=== PATIENT | male | born 1960 | race Caucasian/White ===

== ENCOUNTER 2016-05-25 15:17 | Emergency (ER) | payer MEDICAID | END 2016-05-25 15:56 | disposition home or self-care (01) | DX: Z02.89 Encounter for other administrative examinations (principal); H81.09 Meniere's disease, unspecified ear; E03.9 Hypothyroidism, unspecified ==

== ENCOUNTER 2016-12-13 10:38 | Outpatient (CLI) | payer MEDICAID ==
[2016-12-13 13:04] LABS: BASOPHILS # (AUTO) 0.1 10^3/uL (0.0-0.1); BASOPHILS % (AUTO) 1.8 %; EOSINOPHILS # (AUTO) 0.3 10^3/uL (0.0-0.7); EOSINOPHILS % (AUTO) 3.9 %; HCT - HEMATOCRIT 40.6 % (42.0-52.0); HGB - HEMOGLOBIN 13.7 g/dL (14.0-18.0); LYMPHOCYTES # (AUTO) 1.5 10^3/uL (1.5-3.5); LYMPHOCYTES % (AUTO) 23.1 %; MEAN CORPUSCULAR HGB CONC 33.8 g/dL (32.0-36.0); MEAN CORPUSCULAR VOLUME 88.5 fL (80.0-94.0); MEAN PLATELET VOLUME 8.1 fL (7.4-11.4); MONOCYTES # (AUTO) 0.6 10^3/uL (0.0-1.0); MONOCYTES % (AUTO) 9.8 %; NEUTROPHILS % (AUTO) 61.4 %; RED BLOOD COUNT 4.58 10^6/uL (4.70-6.10); RED CELL DISTRIBUTION WIDTH 13.6 % (12.0-15.0); UNCORRECTED WHITE BLOOD COUNT 6.5 x10^3/uL; WHITE BLOOD COUNT 6.5 x10^3/uL (4.8-10.8)
[2016-12-13 14:16] LABS: THYROID STIMULATING HORMONE 1.92 uIU/mL (0.34-5.60)
== END 2016-12-13 10:39 | disposition home or self-care (01) ==
LOC: LAB.N 10:38
PROVIDERS: ATTEND Family Medicine
DX: E03.9 Hypothyroidism, unspecified (principal); D64.9 Anemia, unspecified
CPT/HCPCS: 36415; 84439; 84443; 85025

== ENCOUNTER 2016-12-28 14:15 | Outpatient (CLI) | payer MEDICAID ==
[2016-12-28 19:19] LABS: BASOPHILS # (AUTO) 0.1 10^3/uL (0.0-0.1); BASOPHILS % (AUTO) 1.3 %; EOSINOPHILS # (AUTO) 0.2 10^3/uL (0.0-0.7); EOSINOPHILS % (AUTO) 2.5 %; HCT - HEMATOCRIT 40.7 % (42.0-52.0); HGB - HEMOGLOBIN 13.7 g/dL (14.0-18.0); LYMPHOCYTES # (AUTO) 1.6 10^3/uL (1.5-3.5); LYMPHOCYTES % (AUTO) 20.8 %; MEAN CORPUSCULAR HEMOGLOBIN 29.9 pg (27.0-31.0); MEAN CORPUSCULAR HGB CONC 33.8 g/dL (32.0-36.0); MEAN CORPUSCULAR VOLUME 88.6 fL (80.0-94.0); MEAN PLATELET VOLUME 8.2 fL (7.4-11.4); MONOCYTES # (AUTO) 0.7 10^3/uL (0.0-1.0); MONOCYTES % (AUTO) 9.1 %; NEUTROPHILS # (AUTO) 5.1 10^3/uL (1.5-6.6); NEUTROPHILS % (AUTO) 66.3 %; NUCLEATED RED BLOOD CELLS AUTO 0.1 /100WBC; RED BLOOD COUNT 4.59 10^6/uL (4.70-6.10); RED CELL DISTRIBUTION WIDTH 13.6 % (12.0-15.0); UNCORRECTED WHITE BLOOD COUNT 7.7 x10^3/uL; WHITE BLOOD COUNT 7.7 x10^3/uL (4.8-10.8)
[2016-12-28 19:48] LABS: FERRITIN 10.7 ng/mL (23.9-336.2)
[2016-12-28 19:49] LABS: IRON 82 ug/dL (45-182); TOTAL IRON BINDING CAPACITY 451 ug/dL (250-450); TRANSFERRIN 322 mg/dL (180-329)
[2016-12-28 19:52] LABS: FOLATE 16.62 ng/mL (5.90 - >24.8)
== END 2016-12-28 14:16 | disposition home or self-care (01) ==
LOC: LAB.N 14:15
PROVIDERS: ATTEND Family Medicine
DX: D64.9 Anemia, unspecified (principal)
CPT/HCPCS: 36415; 82607; 82728; 82746; 83540; 84466; 85025; 85044

== ENCOUNTER 2017-02-02 10:53 | Outpatient (CLI) | payer MEDICAID | END 2017-02-02 10:54 | disposition home or self-care (01) | LOC: SC 10:53 | PROVIDERS: ATTEND Nurse Practitioner Family | DX: G47.9 Sleep disorder, unspecified (principal); R53.83 Other fatigue; R06.83 Snoring | CPT/HCPCS: 99212; 99214 ==

== ENCOUNTER 2017-02-03 11:24 | Outpatient (CLI) | payer MEDICAID ==
[2017-02-03 19:34] LABS: IMMATURE RETIC FRACTION 0.28; RED BLOOD COUNT 4.26 10^6/uL (4.70-6.10)
[2017-02-03 20:00] LABS: IRON 84 ug/dL (45-182); TOTAL IRON BINDING CAPACITY 420 ug/dL (250-450); TRANSFERRIN 300 mg/dL (180-329)
== END 2017-02-03 11:25 | disposition home or self-care (01) ==
LOC: LAB.N 11:24
PROVIDERS: ATTEND Surgery
DX: D64.9 Anemia, unspecified (principal)
CPT/HCPCS: 36415; 82270; 83540; 84466; 85044

== ENCOUNTER 2017-02-06 10:54 | Emergency (ER) | payer MEDICAID ==
--- NOTE | 2017-02-06 12:17 | ED Physician Documentation ---
History of Present Illness - Stated complaint Stated Complaint: CHEST INJURY - Chief complaint Chief Complaint: General - History obtained from History obtained from: Patient - History of Present Illness Timing: Other (2 days ago he was working, was lifting rocks and developed pain in the right chest wall which radiated across the right chest which is sharp and worse with motions of the right arm and deep breathing. There is no exertional component to it. No pedal edema or calf pain. No history of heart or lung disease.) Review of Systems Constitutional: denies: Fever, Chills Nose: denies: Rhinorrhea / runny nose, Congestion Cardiac: denies: Palpitations, Pedal edema, Calf pain Respiratory: denies: Dyspnea, Cough, Hemoptysis, Wheezing PD PAST MEDICAL HISTORY - Past Medical History Neuro: None Endocrine/Autoimmune: HyPOthyroidism Other Past Medical History: hypotension - Past Surgical History Past Surgical History: Yes General: Colonoscopy - Present Medications Home Medications: Ambulatory Orders Medication Instructions Recorded Confirmed Levothyroxine [Synthroid] 50 mcg PO DAILY 05/09/16 02/06/17 HYDROcod/ACETAM 5/325 [Freeman 5/325] 1 - 2 ea PO Q6H PRN #15 tablet 02/06/17 Hydrochlorothiazide 12.5 mg PO DAILY 02/06/17 02/06/17 [Hydrochlorothiazide] - Allergies Allergies/Adverse Reactions: Allergies Allergy/AdvReac Type Severity Reaction Status Date / Time No Known Drug Allergies Allergy Verified 02/06/17 11:00 - Social History Does the pt smoke?: No Smoking Status: Never smoker Does the pt drink ETOH?: Yes Does the pt have substance abuse?: No - Immunizations Immunizations are current?: Yes PD ED PE NORMAL - Vitals Vital signs reviewed: Yes - General General: Alert and oriented X 3, No acute distress - HEENT HEENT: PERRL, EOMI - Neck Neck: Supple, no meningeal sign, No bony TTP - Cardiac Cardiac: RRR, No murmur, Other (Tenderness to the superior part of the pectoralis muscle on the right, he has pain with motion of the right shoulder, especially external rotation in a forceful manner.) - Respiratory Respiratory: No respiratory distress, Clear bilaterally - Abdomen Abdomen: Soft, Non tender - Extremities Extremities: No edema, No calf tenderness / cord - Neuro Neuro: Alert and oriented X 3, Normal speech - Psych Psych: Normal mood, Normal affect Results - Vitals Vitals: Vital Signs - 24 hr 02/06/17 10:56 Temperature 36.1 C L Heart Rate 68 Respiratory 16 Rate Blood Pressure 135/97 H O2 Saturation 98 Oxygen O2 Source Room air - EKG (time done) 1228 Rate: Rate (enter#) (61) Rhythm: NSR [place]: Normal Intervals: Normal [place] QRS: Normal Ischemia: Normal ST segments Computer interpretation: Agree with computer PD MEDICAL DECISION MAKING - ED course ED course: This is a 56-year-old gentleman with clearly musculoskeletal chest wall pain starting after heavy lifting, EKG done. He specifically requests pain medication over muscle relaxers. The [facility] prescription monitoring program was queried with regard to this patient. No concerning findings were found. Departure - Departure Disposition: 01 Home, Self Care Clinical Impression: Chest wall muscle strain Condition: Good Record reviewed to determine appropriate education?: Yes Instructions: ED Contusion Chest Wall Prescriptions: HYDROcod/ACETAM 5/325 [Freeman 5/325] 1 - 2 ea PO Q6H PRN #15 tablet PRN Reason: Pain Comments: Call your doctor to arrange a follow-up appointment, make the next available appointment. In the interim, return anytime if worse or if new symptoms develop. Your blood pressure was elevated today on check into the emergency department. This does not mean that you have hypertension, it is a common phenomenon to come to the emergency department and have elevated blood pressure. I recommend that she see your primary care physician within the week to have it rechecked when you are feeling better. Do not drink or drive while taking narcotic pain medication. Note that many narcotic pain relievers also contain Tylenol/acetaminophen. Please ensure that your total dose of acetaminophen from all sources does not exceed 3 g (3000 mg) per day. You may get constipated while on this medication. Take a stool softener such as Colace twice a day while you are on it. Also add an [id number] laxative such as senna or MiraLAX on any day that you do not have a bowel movement. If you received a narcotic pain medication or sedative while in the emergency department, do not drive for the next 24 hours.
[2017-02-06 12:32] VITALS: BP 145/100
== END 2017-02-06 12:30 | disposition home or self-care (01) ==
LOC: ED 10:54
DX: S29.011A Strain of muscle and tendon of front wall of thorax, initial encounter (principal); X50.0XXA Overexertion from strenuous movement or load, initial encounter; Y93.89 Activity, other specified; Y99.0 Civilian activity done for income or pay; R03.0 Elevated blood-pressure reading, without diagnosis of hypertension; E03.9 Hypothyroidism, unspecified
CPT/HCPCS: 93005; 99283

== ENCOUNTER 2017-02-12 15:15 | Emergency (ER) | payer MEDICAID ==
[2017-02-12 15:28] VITALS: BP 137/98
[2017-02-12] MEDS ORDERED: predniSONE 20 MG TABLET PO STA (15:37)
[2017-02-12] MEDS ORDERED: diphenhydrAMINE 25 MG CAPSULE PO STA (15:37)
--- NOTE | 2017-02-12 15:38 | ED Physician Documentation ---
History of Present Illness - Stated complaint Stated Complaint: BEE STING - Chief complaint Chief Complaint: Allergic Rx - History obtained from History obtained from: Patient - History of Present Illness Timing: Other (Stung by a bee approximately 10:30 AM to the dorsum of the left hand with swelling and redness there, no diffuse rash, throat swelling, shortness of breath. No history of anaphylaxis to bee stings.) Review of Systems Constitutional: denies: Fever, Chills Ears: denies: Drainage/discharge Nose: denies: Rhinorrhea / runny nose Throat: denies: Sore throat Cardiac: denies: Chest pain / pressure, Palpitations Respiratory: denies: Dyspnea, Cough PD PAST MEDICAL HISTORY - Past Medical History Neuro: None Endocrine/Autoimmune: HyPOthyroidism - Past Surgical History Past Surgical History: Yes General: Colonoscopy - Present Medications Home Medications: Ambulatory Orders Medication Instructions Recorded Confirmed Levothyroxine [Synthroid] 50 mcg PO DAILY 05/09/16 02/12/17 Hydrochlorothiazide 12.5 mg PO DAILY 02/06/17 02/12/17 [Hydrochlorothiazide] Liothyronine [Cytomel] 5 mg PO DAILY 02/12/17 02/12/17 predniSONE [Deltasone] 60 mg PO DAILY 5 Days tablet 02/12/17 - Allergies Allergies/Adverse Reactions: Allergies Allergy/AdvReac Type Severity Reaction Status Date / Time No Known Drug Allergies Allergy Verified 02/06/17 11:00 - Social History Does the pt smoke?: No Smoking Status: Never smoker Does the pt drink ETOH?: Yes Does the pt have substance abuse?: No - Immunizations Immunizations are current?: Yes PD ED PE NORMAL - Vitals Vital signs reviewed: Yes - General General: Alert and oriented X 3, No acute distress - HEENT HEENT: Pharynx benign - Cardiac Cardiac: RRR, No murmur - Respiratory Respiratory: No respiratory distress, Clear bilaterally - Derm Derm: Other (No diffuse rash, to the dorsum of the left hand he has angioedema and redness consistent with bee sting with local reaction,) - Neuro Neuro: Alert and oriented X 3, Normal speech - Psych Psych: Normal mood, Normal affect Results - Vitals Vitals: Vital Signs - 24 hr 02/12/17 15:26 Temperature 36.0 C L Heart Rate 80 Respiratory 16 Rate Blood Pressure 137/98 H O2 Saturation 100 Oxygen O2 Source Room air PD MEDICAL DECISION MAKING - ED course ED course: The patient was counseled as to the diagnosis and need for follow-up. I counseled the patient with regard to signs and symptoms that would necessitate an urgent reevaluation in the emergency department. They understand they are welcome to return at any time if worse or if not improving as expected. This document was made in part using voice recognition software. While efforts are made to proofread this documents, sound alike and grammatical errors may occur. Departure - Departure Disposition: 01 Home, Self Care Clinical Impression: Local reaction to bee sting Qualifiers: Encounter type: initial encounter Injury intent: accidental or unintentional Qualified Code(s): T63.441A - Toxic effect of venom of bees, accidental ( unintentional), initial encounter Condition: Good Record reviewed to determine appropriate education?: Yes Instructions: ED Allergic Reaction Local Other Prescriptions: predniSONE [Deltasone] 60 mg PO DAILY 5 Days tablet Comments: Take Benadryl [id number] as needed for itching and swelling, keep it elevated and you can ice it for 5 minutes every hour. Your blood pressure was elevated today on check into the emergency department. This does not mean that you have hypertension, it is a common phenomenon to come to the emergency department and have elevated blood pressure. I recommend that she see your primary care physician within the week to have it rechecked when you are feeling better. Call your doctor to arrange a follow-up appointment, make the next available appointment. In the interim, return anytime if worse or if new symptoms develop.
[2017-02-12] MEDS ORDERED: diphenhydrAMINE 25 MG CAPSULE PO ONE (15:43)
[2017-02-12] MEDS ORDERED: predniSONE 20 MG TABLET ONE (15:43)
== END 2017-02-12 15:49 | disposition home or self-care (01) ==
LOC: ED 15:15
DX: T63.441A Toxic effect of venom of bees, accidental (unintentional), initial encounter (principal); E03.9 Hypothyroidism, unspecified
CPT/HCPCS: 99283; A9270; J7512

== ENCOUNTER 2017-02-21 08:00 | Outpatient (CLI) | payer MEDICAID | END 2017-02-21 23:59 | disposition home or self-care (01) | LOC: LAB.R 08:00 | PROVIDERS: ATTEND Surgery | DX: D50.9 Iron deficiency anemia, unspecified (principal) | CPT/HCPCS: 82270 ==

== ENCOUNTER 2017-03-01 13:25 | Day surgery (SDC) | payer MEDICAID ==
[2017-03-01] MEDS ORDERED: LACTATED RINGERS 1,000 ML IV ONE (13:49)
[2017-03-01] MEDS ORDERED: MIDAZOLAM 2 MG/2 ML VIAL IVP ONE (14:05)
[2017-03-01] MEDS ORDERED: fentaNYL 100 MCG/2 ML VIAL IVP ONE (14:05)
[2017-03-01 16:06] VITALS: BP 99/68
== END 2017-03-01 13:26 | disposition home or self-care (01) ==
LOC: SDS 13:25
PROVIDERS: ATTEND Surgery
PROC: 0DBM8ZX Excision of Descending Colon, Via Natural or Artificial Opening Endoscopic, Diagnostic (ICD-10-PCS; principal; 2017-03-01 14:15)
DX: K63.5 Polyp of colon (principal); D64.9 Anemia, unspecified; K21.9 Gastro-esophageal reflux disease without esophagitis; F41.9 Anxiety disorder, unspecified
CPT/HCPCS: 45380; J7120

== ENCOUNTER 2017-03-03 10:19 | Outpatient (CLI) | payer MEDICAID | END 2017-03-03 10:20 | disposition home or self-care (01) | LOC: SC 10:19 | PROVIDERS: ATTEND Nurse Practitioner Family | DX: G47.33 Obstructive sleep apnea (adult) (pediatric) (principal) | CPT/HCPCS: 99212; 99214 ==

== ENCOUNTER 2017-04-04 18:58 | Outpatient (CLI) | payer MEDICAID ==
--- NOTE | 2017-04-04 21:15 | Ultrasound Report ---
EXAM: RIGHT LOWER EXTREMITY VENOUS ULTRASOUND EXAM DATE: 04/04/2017 07:56 PM. CLINICAL HISTORY: Edema with recent trauma history. COMPARISON: None. TECHNIQUE: Real-time sonographic vascular imaging was performed by the harness brusher through the lower extremity utilizing both color-flow and Doppler spectral analysis. Multiple bottling equipment sales representative static kaitlin ges were saved for review. FINDINGS: Common Femoral Vein (CFV): Normal. CFV-GSV Junction: Normal. Profunda Femoral Vein (PFV): Normal. Femoral Vein (FV) Prox: Normal. Femoral Vein (FV) Mid: Normal. Femoral Vein (FV) Dist: Normal. Popliteal Vein: Normal. Posterior Tibial Veins: Normal. Peroneal Veins: Normal. Contralateral Side CFV: Normal. Other: In the region of the anterolateral mid to distal right leg soft tissue swelling, there is a cu rvilinear fluid collection measuring 3 x 0.5 x 0.5 cm. No radiopaque foreign bodies are noted. IMPRESSION: 1. Small focal area of fluid in the region of swelling measuring 3 x 0.5 x 0.5 cm. No radiopaque fore ign bodies. Differential includes a hematoma or seroma. 2. No evidence for deep venous thrombosis. [facility] Referring Provider Line: [phone] SITE ID: [id number]
== END 2017-04-04 18:59 | disposition home or self-care (01) ==
LOC: DI 18:58
PROVIDERS: ATTEND Nurse Practitioner Gerontology
DX: R60.9 Edema, unspecified (principal)

== ENCOUNTER 2017-06-16 11:01 | Outpatient (CLI) | payer MEDICAID | END 2017-06-16 11:02 | disposition home or self-care (01) | LOC: SC 11:01 | PROVIDERS: ATTEND Nurse Practitioner Family | DX: G47.33 Obstructive sleep apnea (adult) (pediatric) (principal) | CPT/HCPCS: 99212; 99214 ==

== ENCOUNTER 2017-07-14 10:43 | Outpatient (CLI) | payer MEDICAID ==
[2017-07-14 13:48] LABS: % IRON SATURATION 16 % (20-50); BASOPHILS # (AUTO) 0.1 10^3/uL (0.0-0.1); BASOPHILS % (AUTO) 1.1 %; EOSINOPHILS # (AUTO) 0.2 10^3/uL (0.0-0.7); EOSINOPHILS % (AUTO) 2.7 %; HGB - HEMOGLOBIN 14.5 g/dL (14.0-18.0); IRON 67 ug/dL (45-182); LYMPHOCYTES # (AUTO) 1.4 10^3/uL (1.5-3.5); LYMPHOCYTES % (AUTO) 19.9 %; MEAN CORPUSCULAR HEMOGLOBIN 30.2 pg (27.0-31.0); MEAN CORPUSCULAR HGB CONC 33.9 g/dL (32.0-36.0); MEAN CORPUSCULAR VOLUME 89.1 fL (80.0-94.0); MEAN PLATELET VOLUME 8.5 fL (7.4-11.4); MONOCYTES # (AUTO) 0.8 10^3/uL (0.0-1.0); MONOCYTES % (AUTO) 10.8 %; NEUTROPHILS # (AUTO) 4.6 10^3/uL (1.5-6.6); NEUTROPHILS % (AUTO) 65.5 %; PLT - PLATELET COUNT 300 10^3/uL (130-450); RED BLOOD COUNT 4.78 10^6/uL (4.70-6.10); RED CELL DISTRIBUTION WIDTH 13.8 % (12.0-15.0); TOTAL IRON BINDING CAPACITY 414 ug/dL (250-450); TRANSFERRIN 296 mg/dL (180-329)
== END 2017-07-14 10:44 | disposition home or self-care (01) ==
LOC: LAB.N 10:43
PROVIDERS: ATTEND Family Medicine
DX: D50.9 Iron deficiency anemia, unspecified (principal)
CPT/HCPCS: 36415; 82728; 83540; 84466; 85025

== ENCOUNTER 2017-08-11 08:00 | Outpatient (CLI) | payer MEDICAID ==
[2017-08-11 13:10] LABS: CALCIUM 9.1 mg/dL (8.5-10.3); CREATININE 0.7 mg/dL (0.6-1.2); THYROID STIMULATING HORMONE 3.68 uIU/mL (0.34-5.60)
[2017-08-11 13:12] LABS: FREE T4 (FREE THYROXINE) 0.91 ng/dL (0.58-1.64)
== END 2017-08-11 08:01 | disposition home or self-care (01) ==
LOC: LAB.N 08:00
PROVIDERS: ATTEND Family Medicine
DX: E03.9 Hypothyroidism, unspecified (principal); R60.9 Edema, unspecified
CPT/HCPCS: 36415; 80048; 84439; 84443; 84481

== ENCOUNTER → 2017-11-18 | Outpatient (CLI) | payer MEDICAID | LOC: RT.N 05:10 | PROVIDERS: ATTEND Family Medicine | DX: R53.83 Other fatigue (principal); R53.81 Other malaise | CPT/HCPCS: 93005 ==

== ENCOUNTER 2017-11-30 08:49 | Outpatient (CLI) | payer MEDICAID ==
[2017-11-30 09:22] LABS: BASOPHILS % (AUTO) 0.3 %; EOSINOPHILS # (AUTO) 0.4 10^3/uL (0.0-0.7); EOSINOPHILS % (AUTO) 6.4 %; HGB - HEMOGLOBIN 13.4 g/dL (14.0-18.0); LYMPHOCYTES # (AUTO) 1.5 10^3/uL (1.5-3.5); LYMPHOCYTES % (AUTO) 23.6 %; MEAN CORPUSCULAR HEMOGLOBIN 30.6 pg (27.0-31.0); MEAN CORPUSCULAR HGB CONC 34.3 g/dL (32.0-36.0); MEAN CORPUSCULAR VOLUME 89.2 fL (80.0-94.0); MEAN PLATELET VOLUME 7.2 fL (7.4-11.4); MONOCYTES # (AUTO) 0.7 10^3/uL (0.0-1.0); MONOCYTES % (AUTO) 11.6 %; NEUTROPHILS # (AUTO) 3.7 10^3/uL (1.5-6.6); NEUTROPHILS % (AUTO) 58.1 %; PLT - PLATELET COUNT 327 10^3/uL (130-450); RED BLOOD COUNT 4.38 10^6/uL (4.70-6.10); WHITE BLOOD COUNT 6.3 x10^3/uL (4.8-10.8)
[2017-11-30 10:03] LABS: THYROID STIMULATING HORMONE 3.22 uIU/mL (0.34-5.60)
[2017-11-30 10:05] LABS: ALBUMIN 3.7 g/dL (3.2-5.5); ALBUMIN/GLOBULIN RATIO 1.2 (1.0-2.2); BILIRUBIN,TOTAL 0.9 mg/dL (0.2-1.0); CREATININE 0.9 mg/dL (0.6-1.2); FREE T4 (FREE THYROXINE) 1.01 ng/dL (0.58-1.64); TOTAL PROTEIN 6.8 g/dL (6.7-8.2)
[2017-11-30 10:08] LABS: FERRITIN 21.5 ng/mL (23.9-336.2)
== END 2017-11-30 08:50 | disposition home or self-care (01) ==
LOC: LAB 08:49
PROVIDERS: ATTEND Family Medicine
DX: R53.83 Other fatigue (principal); D50.9 Iron deficiency anemia, unspecified; E03.9 Hypothyroidism, unspecified
CPT/HCPCS: 36415; 80053; 82728; 83540; 84439; 84443; 84466; 84481; 85025

== ENCOUNTER → 2018-03-01 | Outpatient (CLI) | payer MEDICAID | LOC: RT.N 15:35 | PROVIDERS: ATTEND Family Medicine | DX: R42 Dizziness and giddiness (principal) | CPT/HCPCS: 93005 ==

== ENCOUNTER 2018-04-25 10:35 | Outpatient (CLI) | payer MEDICAID ==
[2018-04-25 10:50] LABS: BASOPHILS # (AUTO) 0.1 10^3/uL (0.0-0.1); BASOPHILS % (AUTO) 1.5 %; EOSINOPHILS # (AUTO) 0.2 10^3/uL (0.0-0.7); EOSINOPHILS % (AUTO) 4.8 %; HGB - HEMOGLOBIN 13.8 g/dL (14.0-18.0); LYMPHOCYTES # (AUTO) 1.4 10^3/uL (1.5-3.5); LYMPHOCYTES % (AUTO) 28.6 %; MEAN CORPUSCULAR HEMOGLOBIN 31.1 pg (27.0-31.0); MEAN CORPUSCULAR HGB CONC 34.6 g/dL (32.0-36.0); MEAN CORPUSCULAR VOLUME 89.9 fL (80.0-94.0); MEAN PLATELET VOLUME 7.2 fL (7.4-11.4); MONOCYTES # (AUTO) 0.6 10^3/uL (0.0-1.0); NEUTROPHILS # (AUTO) 2.5 10^3/uL (1.5-6.6); NEUTROPHILS % (AUTO) 53.1 %; PLT - PLATELET COUNT 285 10^3/uL (130-450); RED BLOOD COUNT 4.42 10^6/uL (4.70-6.10); RED CELL DISTRIBUTION WIDTH 13.5 % (12.0-15.0); WHITE BLOOD COUNT 4.8 x10^3/uL (4.8-10.8)
[2018-04-25 11:21] LABS: THYROID STIMULATING HORMONE 2.15 uIU/mL (0.34-5.60)
[2018-04-25 11:23] LABS: FREE T4 (FREE THYROXINE) 1.05 ng/dL (0.58-1.64)
[2018-04-25 11:27] LABS: FERRITIN 19.3 ng/mL (23.9-336.2)
== END 2018-04-25 10:36 | disposition home or self-care (01) ==
LOC: LAB 10:35
PROVIDERS: ATTEND Family Medicine
DX: D64.9 Anemia, unspecified (principal); E03.9 Hypothyroidism, unspecified
CPT/HCPCS: 36415; 82728; 84439; 84443; 84481; 85025

== ENCOUNTER 2018-05-10 11:35 | Outpatient (CLI) | payer MEDICAID ==
[2018-05-10 19:11] LABS: PSA FREE 0.21 ng/mL (0.16-2.81)
[2018-05-10 19:12] LABS: PSA TOTAL 0.6 ng/mL (0.000-2.000)
== END 2018-05-10 23:59 | disposition home or self-care (01) ==
LOC: LAB.N 11:35
PROVIDERS: ATTEND Family Medicine
DX: R35.1 Nocturia (principal)
CPT/HCPCS: 36415; 84153; 84154

== ENCOUNTER 2018-11-19 16:53 | Emergency (ER) | payer MEDICAID ==
[2018-11-19] MEDS ORDERED: BUFFERED LIDOCAINE 10 ML SYRINGE SUBQ STA (17:05)
[2018-11-19 17:06] VITALS: BP 147/85
--- NOTE | 2018-11-19 17:06 | ED Physician Documentation ---
PD HPI LOWER EXT INJURY - Stated complaint Stated Complaint: LT FOOT LAC - History obtained from History obtained from: Patient - History of Present Illness PD HPI LOW EXT INJURY LOCATION: Left (57-year-old gentleman who is up-to-date on tetanus cut his left great toe with a chainsaw accidentally at home just prior to arrival.) Review of Systems Constitutional: reports: Reviewed and negative Cardiac: reports: Reviewed and negative Respiratory: reports: Reviewed and negative PD PAST MEDICAL HISTORY - Past Medical History Cardiovascular: Other Respiratory: None Endocrine/Autoimmune: None GI: None : None HEENT: None Psych: None Musculoskeletal: None Derm: Psoriasis - Past Surgical History Past Surgical History: Yes General: Colonoscopy HEENT: Tonsil/Adenoidectomy - Present Medications Home Medications: Ambulatory Orders Medication Instructions Recorded Confirmed Levothyroxine [Synthroid] 50 mcg PO DAILY 05/09/16 03/01/17 hydroCHLOROthiazide 12.5 mg PO DAILY 02/06/17 03/01/17 [Hydrochlorothiazide] Liothyronine [Cytomel] 5 mg PO DAILY 02/12/17 03/01/17 predniSONE [Deltasone] 60 mg PO DAILY 5 Days tablet 02/12/17 03/01/17 Bacitracin Zinc Oint 1 applic TOP BID #1 tube 11/19/18 Hydrocodone/Acetaminophen 1 - 2 each PO Q6H PRN #7 tablet 11/19/18 [Hydrocodon-Acetaminophen 5-325] - Allergies Allergies/Adverse Reactions: Allergies Allergy/AdvReac Type Severity Reaction Status Date / Time No Known Drug Allergies Allergy Verified 02/06/17 11:00 - Social History Does the pt smoke?: No Smoking Status: Never smoker Does the pt drink ETOH?: Yes Does the pt have substance abuse?: No - Immunizations Immunizations are current?: Yes PD ED PE NORMAL - Vitals Vital signs reviewed: Yes - General General: Alert and oriented X 3, No acute distress - Extremities Extremities: Other (On the tip of the left great toe there is basically a tissue defect measuring about 1 cm x 5 mm that is somewhat dirty. It just barely affects the tip of the nail. It is basically central in the tip of the great toe.) - Neuro Neuro: Alert and oriented X 3, Normal speech Results - Vitals Vitals: Vital Signs - 24 hr 11/19/18 17:04 Temperature 36.5 C Heart Rate 88 Respiratory 18 Rate Blood Pressure 147/85 H O2 Saturation 98 Oxygen O2 Source Room air Procedures - Regional nerve block Nerve block site: Digital - note digit(s) (left big toe) Nerve block anesthesia: Lidocaine 1% (buffered) Nerve block aftercare: Excellent anesthesia PD MEDICAL DECISION MAKING - ED course ED course: After digital block I personally scrubbed it and irrigated it thoroughly. It became clear that the defect was too big to close with suture and discussed with the patient that it will have to heal by secondary intention. Here it was dressed with Xeroform and tube gauze and he was counseled on wound care. Departure - Departure Disposition: Home, Self Care Clinical Impression: Avulsion of skin of foot Qualifiers: Encounter type: initial encounter Laterality: left Qualified Code(s): S91.302A - Unspecified open wound, left foot, initial encounter Condition: Good Record reviewed to determine appropriate education?: Yes Health Concerns: Toe wound Plan of Treatment: As discussed the wound will have to heal by itself as it is too wide to suture. Once a day wash briefly with soap and water and then apply some of the bacitracin ointment as a prescription. Then put a nonstick dressing on it and keep it covered. After a few weeks of this it should heal in well. Follow-up with your doctor in a week for a wound check. Care Goals: healing Assessment: as above Instructions: ED Avulsion Dermal Prescriptions: Bacitracin Zinc Oint 1 applic TOP BID #1 tube Hydrocodone/Acetaminophen [Hydrocodon-Acetaminophen 5-325] 1 - 2 each PO Q6H PRN #7 tablet PRN Reason: pain Comments: As discussed the wound will have to heal by itself as it is too wide to suture. Once a day wash briefly with soap and water and then apply some of the bacitracin ointment as a prescription. Then put a nonstick dressing on it and keep it covered. After a few weeks of this it should heal in well. Follow-up with your doctor in a week for a wound check.
[2018-11-19] MEDS ORDERED: HYDROcod/ACET 5/325 Prepack 4 PO STA (17:51)
--- NOTE | 2018-11-19 18:17 | XRAY Report ---
Reason: toe inj Procedure Date: 11/19/2018 Accession Number: [id number] / [id number] Procedure: XR - Toe(s) LT CPT Code: FULL RESULT: EXAM: LEFT TOE RADIOGRAPHY EXAM DATE: 11/19/2018 05:51 PM. CLINICAL HISTORY: Toe inj. COMPARISON: None. TECHNIQUE: 3 views. FINDINGS: Bones: No acute fractures or suspicious bone lesions. Joints: No subluxations. Soft Tissues: No radiopaque foreign bodies. IMPRESSION: No acute radiographic abnormalities. [facility]
== END 2018-11-19 17:59 | disposition home or self-care (01) ==
LOC: ED 16:53
DX: S91.112A Laceration without foreign body of left great toe without damage to nail, initial encounter (principal); W29.3XXA Contact with powered garden and outdoor hand tools and machinery, initial encounter; Y92.009 Unspecified place in unspecified non-institutional (private) residence as the place of occurrence of the external cause
CPT/HCPCS: 64450; 73660; 99283; 99284

== ENCOUNTER 2019-01-23 19:00 | Emergency (ER) | payer MEDICAID ==
[2019-01-23 19:21] VITALS: BP 163/103
== END 2019-01-23 19:24 | disposition left against medical advice (07) ==
LOC: ED 19:00
DX: Z53.21 Procedure and treatment not carried out due to patient leaving prior to being seen by health care provider (principal)

== ENCOUNTER 2019-06-05 07:59 | Outpatient (CLI) | payer MEDICAID | END 2019-06-05 08:00 | disposition home or self-care (01) | LOC: LAB 07:59 | PROVIDERS: ATTEND Physician Assistant Medical | DX: Z53.9 Procedure and treatment not carried out, unspecified reason (principal) ==

== ENCOUNTER 2019-06-09 07:39 | Outpatient (CLI) | payer MEDICAID ==
[2019-06-09 07:54] LABS: BASOPHILS # (AUTO) 0.1 10^3/uL (0.0-0.1); BASOPHILS % (AUTO) 0.9 %; EOSINOPHILS # (AUTO) 0.4 10^3/uL (0.0-0.7); EOSINOPHILS % (AUTO) 4.2 %; HGB - HEMOGLOBIN 14.1 g/dL (14.0-18.0); LYMPHOCYTES # (AUTO) 1.4 10^3/uL (1.5-3.5); LYMPHOCYTES % (AUTO) 16.8 %; MEAN CORPUSCULAR HEMOGLOBIN 30.9 pg (27.0-31.0); MEAN CORPUSCULAR HGB CONC 33.1 g/dL (32.0-36.0); MEAN CORPUSCULAR VOLUME 93.4 fL (80.0-94.0); MEAN PLATELET VOLUME 9.3 fL (7.4-11.4); MONOCYTES # (AUTO) 0.9 10^3/uL (0.0-1.0); MONOCYTES % (AUTO) 10.8 %; NEUTROPHILS # (AUTO) 5.7 10^3/uL (1.5-6.6); PLT - PLATELET COUNT 293 10^3/uL (130-450); RED BLOOD COUNT 4.56 10^6/uL (4.70-6.10); RED CELL DISTRIBUTION WIDTH 12.5 % (12.0-15.0); WHITE BLOOD COUNT 8.6 x10^3/uL (4.8-10.8)
[2019-06-09 08:09] LABS: ALBUMIN 4.3 g/dL (3.2-5.5); ALBUMIN/GLOBULIN RATIO 1.5 (1.0-2.2); ALKALINE PHOSPHATASE 50 IU/L (42-121); ALT ALANINE AMINOTRANSFERASE 26 IU/L (10-60); AST ASPARTATE AMINOTRANSFERASE 29 IU/L (10-42); BILIRUBIN,TOTAL 1.2 mg/dL (0.2-1.0); BUN - BLOOD UREA NITROGEN 18 mg/dL (6-20); CALCIUM 9.1 mg/dL (8.5-10.3); CARBON DIOXIDE - CO2 28 mmol/L (21-32); CHLORIDE 101 mmol/L (101-111); CHOL/HDL RATIO 1.9 (<5.0); CHOLESTEROL 156 mg/dL; CREATININE 0.9 mg/dL (0.6-1.2); GFR - MDRD 87 (>89); GLUCOSE 97 mg/dL (70-100); HDL CHOLESTEROL 82 mg/dL; SODIUM 137 mmol/L (135-145); TOTAL PROTEIN 7.2 g/dL (6.7-8.2)
[2019-06-09 08:21] LABS: THYROID STIMULATING HORMONE 1.37 uIU/mL (0.34-5.60)
[2019-06-09 08:27] LABS: FERRITIN 24.5 ng/mL (23.9-336.2)
== END 2019-06-09 07:40 | disposition home or self-care (01) ==
LOC: LAB 07:39
PROVIDERS: ATTEND Physician Assistant Medical
DX: D50.9 Iron deficiency anemia, unspecified (principal); E03.9 Hypothyroidism, unspecified
CPT/HCPCS: 36415; 80053; 80061; 82728; 83721; 84443; 85025

== ENCOUNTER 2020-01-31 15:35 | Emergency (ER) | payer MEDICAID ==
[2020-01-31] MEDS ORDERED: diphenhydrAMINE 25 MG CAPSULE PO STA (16:32)
[2020-01-31] MEDS ORDERED: FAMOTIDINE 20 MG TABLET PO STA (16:32)
[2020-01-31] MEDS ORDERED: predniSONE 20 MG TABLET PO STA (16:33)
--- NOTE | 2020-01-31 16:35 | ED Physician Documentation ---
History of Present Illness - Stated complaint Stated Complaint: BEE STINGS - Chief complaint Chief Complaint: Allergic Rx - Additonal information Additional information: 59-year-old male presents to the emergency department for evaluation of bee stings. He was cutting wood and he walked into a [email or web address] hive. He was wearing shorts. He estimates that he was stung about 30 times. However on exam I see only 5 or 6 clear bee sting ayala. He has been stung before and has no history of anaphylaxis related to bee stings. He denies chest pain or shortness of breath. He has no fevers. He reports that he feels a little bit funny but he thinks is just adrenaline from the stings. He denies chest pain. Review of Systems Constitutional: reports: Reviewed and negative Eyes: reports: Reviewed and negative Ears: reports: Reviewed and negative Nose: reports: Reviewed and negative Cardiac: reports: Reviewed and negative Respiratory: reports: Reviewed and negative GI: reports: Reviewed and negative : reports: Reviewed and negative Skin: reports: Bite / sting (5-6 bee stngs notes on legs and arms) Musculoskeletal: reports: Reviewed and negative Neurologic: reports: Reviewed and negative PD PAST MEDICAL HISTORY - Past Medical History Cardiovascular: Other Respiratory: None Neuro: None Endocrine/Autoimmune: None GI: None : None HEENT: None Psych: None Musculoskeletal: None Derm: Psoriasis - Past Surgical History Past Surgical History: Yes General: Colonoscopy HEENT: Tonsil/Adenoidectomy - Present Medications Home Medications: Ambulatory Orders Medication Instructions Recorded Confirmed Levothyroxine [Synthroid] 50 mcg PO DAILY 05/09/16 03/01/17 Liothyronine [Cytomel] 5 mg PO DAILY 02/12/17 03/01/17 Famotidine [Pepcid] 20 mg PO BID #60 tablet 01/31/20 diphenhydrAMINE [Benadryl] 25 mg PO BID #6 capsule 01/31/20 predniSONE [Prednisone] 40 mg PO DAILY #6 tablet 01/31/20 - Allergies Allergies/Adverse Reactions: Allergies Allergy/AdvReac Type Severity Reaction Status Date / Time No Known Drug Allergies Allergy Verified 01/31/20 15:51 - Social History Does the pt smoke?: No Smoking Status: Never smoker Does the pt drink ETOH?: Yes ETOH Use: Beer Does the pt have substance abuse?: Yes Substance Use and Type: Marijuana - Immunizations Immunizations are current?: Yes - POLST Patient has POLST: No PD ED PE EXPANDED - General General: Alert, No acute distress, Well developed/nourished, Anxious - HEENT HEENT: Atraumatic, PERRL, Moist mucous membranes (No tongue or lip swelling. Normal phonation. Full range of motion of neck in all planes), Pharynx normal - Eyes Eyes: PERRL, Normal accommodation - Cardiac Cardiac: Regular Rate, Radial strong equal, Femoral strong equal, Cap refill < 2 sec - Respiratory Respiratory: Clear to ausultation noelle. No: Distress, Labored, Stridor, Gasping, Retractions, Wheezing, Rhonchi - Abdomen Abdomen: Normal Bowel sounds. No: Tender to palpation - Derm Derm: Normal color, Warm and dry, Other (bees stings notes on BLE. raised red welts without erythema. varying in size, but typically around 3 cm) - Extremities Extremities: Normal Results - Vitals Vitals: Vital Signs - 24 hr 01/31/20 01/31/20 15:44 16:15 Temperature 36.5 C 36.5 C Heart Rate 71 68 Respiratory 16 16 Rate Blood Pressure 152/92 H 135/101 H O2 Saturation 100 99 Oxygen O2 Source Room air PD MEDICAL DECISION MAKING - ED course Complexity details: considered differential, d/w patient, d/w family ED course: 59-year-old male Presents to the emergency department with multiple bee stings on his arms and legs sustained when was cutting wood this afternoonTo bee stings. It has been about 2 hours since he was stung. he has no history of anaphylaxis. This gentleman is given Benadryl and Pepcid here in the emergency department as well as a dose of Prednisone. He will be discharged with rx for benadryl, pepcid and 3 additional days or prednisone. Given that the stings occurred a few hours ago no further observation is warranted. His exam is otherwise unremarkable. Emergent return precautions discussed Departure - Departure Disposition: 01 Home, Self Care Clinical Impression: Hymenoptera sting Qualifiers: Encounter type: initial encounter Injury intent: accidental or unintentional Qualified Code(s): T63.481A - Toxic effect of venom of other arthropod, accidental (unintentional), initial encounter Condition: Stable Record reviewed to determine appropriate education?: Yes Instructions: ED Bite Sting Insect Gen Allergic React Prescriptions: diphenhydrAMINE [Benadryl] 25 mg PO BID #6 capsule Famotidine [Pepcid] 20 mg PO BID #60 tablet predniSONE [Prednisone] 40 mg PO DAILY #6 tablet Comments: Amadeo you were given prednisone Benadryl and Pepcid in the emergency department. This should help with his staying and swelling over the next 24 hours. I would like you to begin taking these medications tomorrow as well. If at any point you have tongue or lip swelling, are short of breath or have chest pain please return immediately to the ER
[2020-01-31 16:56] VITALS: BP 161/97
== END 2020-01-31 16:56 | disposition home or self-care (01) ==
LOC: ED 15:35
DX: T63.461A Toxic effect of venom of wasps, accidental (unintentional), initial encounter (principal); X58.XXXA Exposure to other specified factors, initial encounter; Y93.89 Activity, other specified
CPT/HCPCS: 99283; 99284; A9270; J7512

== ENCOUNTER 2020-05-01 06:03 | Outpatient (CLI) | payer MEDICAID ==
[2020-05-01 06:25] LABS: BASOPHILS # (AUTO) 0.1 10^3/uL (0.0-0.1); BASOPHILS % (AUTO) 1.3 %; EOSINOPHILS # (AUTO) 0.5 10^3/uL (0.0-0.7); EOSINOPHILS % (AUTO) 6.6 %; HGB - HEMOGLOBIN 13.6 g/dL (14.0-18.0); LYMPHOCYTES # (AUTO) 2.2 10^3/uL (1.5-3.5); LYMPHOCYTES % (AUTO) 30.7 %; MEAN CORPUSCULAR HEMOGLOBIN 31.8 pg (27.0-31.0); MEAN CORPUSCULAR HGB CONC 34.8 g/dL (32.0-36.0); MEAN CORPUSCULAR VOLUME 91.4 fL (80.0-94.0); MEAN PLATELET VOLUME 9.5 fL (7.4-11.4); MONOCYTES # (AUTO) 0.7 10^3/uL (0.0-1.0); MONOCYTES % (AUTO) 9.3 %; NEUTROPHILS # (AUTO) 3.7 10^3/uL (1.5-6.6); PLT - PLATELET COUNT 275 10^3/uL (130-450); RED BLOOD COUNT 4.28 10^6/uL (4.70-6.10); RED CELL DISTRIBUTION WIDTH 12.1 % (12.0-15.0); WHITE BLOOD COUNT 7.1 x10^3/uL (4.8-10.8)
[2020-05-01 06:30] LABS: ALBUMIN 4.7 g/dL (3.2-5.5); ALBUMIN/GLOBULIN RATIO 1.8 (1.0-2.2); BILIRUBIN,TOTAL 1.1 mg/dL (0.2-1.0); CREATININE 0.9 mg/dL (0.6-1.2); TOTAL PROTEIN 7.3 g/dL (6.7-8.2)
== END 2020-05-01 06:04 | disposition home or self-care (01) ==
LOC: LAB 06:03
PROVIDERS: ATTEND Nurse Practitioner
DX: D50.9 Iron deficiency anemia, unspecified (principal); K21.9 Gastro-esophageal reflux disease without esophagitis; K58.9 Irritable bowel syndrome, unspecified; E03.9 Hypothyroidism, unspecified
CPT/HCPCS: 36415; 80053; 84443; 85025

== ENCOUNTER 2020-06-23 13:17 | Outpatient (CLI) | payer MEDICAID ==
--- NOTE | 2020-06-23 15:44 | SLEEP CARE CONSULTATION ---
Information from patient questionnaire entered by Saima Best. I have reviewed and concur with the information entered by Saima Best. This document represents the service I personally performed and the decisions made by me, Gisel Mendez MD, [facility]. History of Present Illness Service Date and Time: 06/23/2020 1317 Reason for Visit: New patient, Previously diagnosed sleep apnea (AHI), Re- establish care Chief Complaint: reports: Insomnia, Unrefreshed sleep, Frequent awakenings at night Date of Onset: 10+ years Usual bedtime: 2129 Time it takes to fall asleep: 4-5 hours Snores at night: Yes (Unsure, he knows he used to but he lives alone) Observed to quit breathing while asleep: No Number of times waking at night: 5-6 Reasons for waking at night: reports: Bathroom Toss, Turn, or Twitch while sleeping: Yes Recalls having dreams: Yes (rarely/occassionally) Usually gets out of bed at: around [id number], different times Feels refreshed in the morning: No Morning headache: No Sleepy or fatigued during the day: Yes (not terrible) Ever fallen asleep while driving: Yes Takes day naps: Yes Dreams during day naps: No Prior sleep studies: Yes Year and Where: 2017 [facility] Type of Sleep Study: Home sleep study Additional HPI information: HPI: Mr. Banks was diagnosed to have mild obstructive sleep apnea- hypopnea syndrome and returns today for follow up. The sleep study he had was a home sleep apnea test (HSAT) in 2017. The patient said he could not use the CPAP. His main problem is insomnia which has been going on for almost 20 years. He goes to bed at 9:30 pm and gets out of bed at 6:30 am. It takes him 4 5 hours to fall asleep. He does not take any sleep aid. He wakes up 5 6 times during the night. He gets up the same time every morning because he has a lot to do. He says he is under a lot of stress for not having money, work, or friends. He complains of feeling tired all the time but not particularly sleepy. His [place] Sleepiness Scale score is 1, although he consumes a lot of caffeinated beverages all day. 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 Patient is Single and lives in [place]. Have you smoked in the past 12 months: No Alcohol use: No Caffeine use: Yes Caffeine amount and frequency: 6-8 cups/day Allergies and Home Medications Drug allergies reviewed: Yes Home medication list reviewed: Yes Review of Systems Weight gain over past 5 years: 60 Weight loss over past 5 years: 80 Cardiovascular: reports: palpitations, irregular heart rate or pulse, leg or foot swelling Respiratory: reports: shortness of breath Gastrointestinal: reports: heartburn Urinary: reports: frequency Neurological: reports: gait or balance problems Psychiatric: reports: anxiety Ear/Nose/Throat: denies: nasal congestion, sinus problems, nose bleeds, dry mouth/throat, hoarseness, injury to nose, tonsillectomy, wisdom teeth removed, other Endocrine: reports: sluggishness Musculoskeletal: reports: muscle pain or cramping Immunologic: reports: sneezing, itching Physical Exam Height: 6 ft 2 in Weight: 180 lb Body Mass Index: 23.1 BMI Classification: Healthy weight Impression and Plan IMPRESSION: 1. Obstructive Sleep Apnea-Hypopnea Syndrome, mild (AHI was 11.3), presently untreated but probably the least of his problems. He has lost weight and may not even have the condition anymore. A sleep study will be repeated. 2. Insomnia, due to excessive time spent in bed and anxiety. He may also be a short sleeper because he mentions that he averages only 4 5 hours of sleep a night these past 15 years. Therefore, I advised him to delay his bedtime to 11 pm at the earliest and maintain his wakeup time at 6 am. PLAN: 1. Order an in-laboratory polysomnography. 2. Maintain a regular wake up time and spend no more than 7 hours in bed at night. Avoid naps. 3. Return for follow up after the sleep study. Visit Type: In Office Time Spent with Patient (minutes): 15 Provider Statement: I spent 100% of the Face to Face Visit with the patient with greater than 50% spent counseling the patient and coordination of care.
== END 2020-06-23 13:18 | disposition home or self-care (01) ==
LOC: SC 13:17
PROVIDERS: ATTEND Internal Medicine Pulmonary Disease
DX: G47.33 Obstructive sleep apnea (adult) (pediatric) (principal); G47.00 Insomnia, unspecified
CPT/HCPCS: 99202; 99212

== ENCOUNTER 2020-09-29 13:32 | Outpatient (CLI) | payer MEDICAID ==
--- NOTE | 2020-09-29 22:30 | SLEEP CARE CONSULTATION ---
Information from patient questionnaire entered by May Liz. I have reviewed and concur with the information entered by May Liz. This document represents the service I personally performed and the decisions made by me, Gisel Mendez MD, [facility]. History of Present Illness Service Date and Time: 09/29/2020 1332 Initial Hull Sleepiness Scale score: 1 (in 2020) Current Hull Sleepiness Scale score: 3 Additional HPI information: HPI: Mr. Banks returned for follow up of the in-laboratory polysomnography he had on 09-17-20 at [facility]. The polysomnography showed mild obstructive sleep apnea-hypopnea with an AHI of 8.6 and sophie oxygen saturation of 90%. The respiratory events occurred almost exclusively during supine sleep. The patient was informed of these findings. I explained to him the path ophysiology behind obstructive sleep apnea. We then spent quite a bit of time discussing different treatment options. For mild obstructive sleep apnea, surgery and oral appliance are alternatives to nasal CPAP therapy but in moderate or severe cases, nasal CPAP is the most effective and reliable treatment. Weight loss in an obese individual is strongly recommended. After some discussion, he opted to not sleep on his back. His main complaint remains insomnia. Sleep Study - Results Type of Sleep Study: Polysomnography Prior sleep studies: Yes Year and Where: 2018 - [facility] Allergies and Home Medications Drug allergies reviewed: Yes Home medication list reviewed: Yes Review of Systems Review of systems same as previous: Yes Physical Exam Height: 6 ft 2 in Weight: 198 lb Body Mass Index: 25.4 BMI Classification: Overweight Impression and Plan IMPRESSION: 1. Obstructive Sleep Apnea-Hypopnea Syndrome, mild, and positional. The patient will avoid sleeping on his back. He will also try to lose weight. He said a few years ago he was down to 155 lbs and felt great. 2. Insomnia, due to excessive time spent in bed as mentioned on his last clinic visit. He will try to limit time spent in bed to not more than 7 hours by going to bed at 10 pm and getting up at 5 am. PLAN: 1. Avoid sleeping supine. I showed him how to sew tennis balls to the back of his [employer]. 2. Attempt to lose weight and avoid alcohol consumption near bedtime. 3. Maintain a regular wake up time and spend no more than 7 hours in bed at night. Avoid naps. 4. Return for a follow up on as needed basis. Follow up recommended for: Weight management Visit Type: In Office Time Spent with Patient (minutes): 15 Provider Statement: I spent 100% of the Face to Face Visit with the patient with greater than 50% spent counseling the patient and coordination of care.
== END 2020-09-29 13:33 | disposition home or self-care (01) ==
LOC: SC 13:32
PROVIDERS: ATTEND Internal Medicine Pulmonary Disease
DX: G47.33 Obstructive sleep apnea (adult) (pediatric) (principal); E66.3 Overweight; Z68.25 Body mass index [BMI] 25.0-25.9, adult
CPT/HCPCS: 99212

== ENCOUNTER 2021-06-15 09:40 | Outpatient (CLI) | payer MEDICAID ==
[2021-06-15 10:00] LABS: BASOPHILS # (AUTO) 0.1 10^3/uL (0.0-0.1); BASOPHILS % (AUTO) 1.2 %; EOSINOPHILS # (AUTO) 0.2 10^3/uL (0.0-0.7); EOSINOPHILS % (AUTO) 3.2 %; HCT - HEMATOCRIT 39.4 % (42.0-52.0); HGB - HEMOGLOBIN 13.4 g/dL (14.0-18.0); LYMPHOCYTES # (AUTO) 1.1 10^3/uL (1.5-3.5); LYMPHOCYTES % (AUTO) 16.6 %; MEAN CORPUSCULAR HEMOGLOBIN 30.7 pg (27.0-31.0); MEAN CORPUSCULAR VOLUME 90.4 fL (80.0-94.0); MONOCYTES # (AUTO) 0.7 10^3/uL (0.0-1.0); MONOCYTES % (AUTO) 11.4 %; NEUTROPHILS # (AUTO) 4.4 10^3/uL (1.5-6.6); NEUTROPHILS % (AUTO) 67.3 %; PLT - PLATELET COUNT 270 10^3/uL (130-450); RED BLOOD COUNT 4.36 10^6/uL (4.70-6.10); RED CELL DISTRIBUTION WIDTH 12.7 % (12.0-15.0); WHITE BLOOD COUNT 6.5 x10^3/uL (4.8-10.8)
[2021-06-15 10:22] LABS: % IRON SATURATION 30 % (20-50); ALBUMIN 4.1 g/dL (3.2-5.5); ALBUMIN/GLOBULIN RATIO 1.5 (1.0-2.2); ALKALINE PHOSPHATASE 43 IU/L (42-121); ALT ALANINE AMINOTRANSFERASE 32 IU/L (10-60); AST ASPARTATE AMINOTRANSFERASE 31 IU/L (10-42); BILIRUBIN,TOTAL 1.2 mg/dL (0.2-1.0); BUN - BLOOD UREA NITROGEN 13 mg/dL (6-20); CALCIUM 9.2 mg/dL (8.5-10.3); CARBON DIOXIDE - CO2 23 mmol/L (21-32); CHLORIDE 102 mmol/L (101-111); CHOL/HDL RATIO 2.6 (<5.0); CHOLESTEROL 159 mg/dL; CREATININE 0.9 mg/dL (0.6-1.2); GFR - MDRD 86 (>89); GLUCOSE 106 mg/dL (70-100); HDL CHOLESTEROL 61 mg/dL; IRON 123 ug/dL (45-182); POTASSIUM 4.3 mmol/L (3.5-5.0); SODIUM 136 mmol/L (135-145); TOTAL IRON BINDING CAPACITY 409 ug/dL (250-450); TOTAL PROTEIN 6.9 g/dL (6.7-8.2); TRANSFERRIN 292 mg/dL (180-329); TRIGLYCERIDES 34 mg/dL
[2021-06-15 10:29] LABS: THYROID STIMULATING HORMONE 1.47 uIU/mL (0.34-5.60)
[2021-06-15 10:35] LABS: FERRITIN 22.1 ng/mL (23.9-336.2)
== END 2021-06-15 09:41 | disposition home or self-care (01) ==
LOC: LAB 09:40
PROVIDERS: ATTEND Internal Medicine
DX: F10.10 Alcohol abuse, uncomplicated (principal); Z13.220 Encounter for screening for lipoid disorders; D50.9 Iron deficiency anemia, unspecified; Z12.5 Encounter for screening for malignant neoplasm of prostate; E03.9 Hypothyroidism, unspecified
CPT/HCPCS: 36415; 80053; 80061; 82728; 83540; 83721; 84153; 84443; 84466; 85025

== ENCOUNTER 2022-04-19 11:21 | Outpatient (CLI) | payer MEDICAID ==
--- NOTE | 2022-04-20 09:54 | XRAY Report ---
PROCEDURE: Finger(s) LT INDICATIONS: L 5TH DIGIT PX TECHNIQUE: AP hand, 2 views of the fifth finger(s) acquired. COMPARISON: None. FINDINGS: Bones: No fractures or dislocations. There is appearance of slight dorsal subluxation of the fifth d istal phalanx at the distal interphalangeal joint on the lateral view. No suspicious bony lesions. Soft tissues: No suspicious soft tissue calcifications. IMPRESSION: 1. No acute osseous abnormalities. 2. Appearance of slight dorsal subluxation of the fifth distal phalanx at the distal interphalangeal joint. The finding may be related to ligamentous injury. Recommend correlation with focal pain/tender ness. Reviewed by: India Hodgson MD on 04/20/2022 9:52 AM PST Approved by: India Hodgson MD on 04/20/2022 9:52 AM [facility] Station ID: [id number]
== END 2022-04-19 23:59 | disposition home or self-care (01) ==
LOC: DI.N 11:21
PROVIDERS: ATTEND Physician Assistant Medical
DX: S69.92XA Unspecified injury of left wrist, hand and finger(s), initial encounter (principal)

== ENCOUNTER 2022-06-22 11:01 | Outpatient (CLI) | payer MEDICAID ==
--- NOTE | 2022-06-22 15:41 | XRAY Report ---
PROCEDURE: Finger(s) LT INDICATIONS: LEFT 5TH FINGER PAIN TECHNIQUE: AP hand, 2 views of the fifth finger(s) acquired. COMPARISON: None FINDINGS: Bones: No fractures or dislocations. No suspicious bony lesions. Soft tissues: No suspicious soft tissue calcifications. IMPRESSION: No acute fracture. No osseous lesion. If symptoms and/or clinical suspicion for pathology continue, f urther assessment with repeat plain films, or advanced imaging (e.g., CT, MRI, or bone scan) is recom mended for further assessment. Reviewed by: Manjit Hines MD on 06/22/2022 3:40 PM PST Approved by: Manjit Hines MD on 06/22/2022 3:40 PM PST Station ID: [id number]
== END 2022-06-22 11:15 | disposition home or self-care (01) ==
LOC: DI.WOS 11:01
PROVIDERS: ATTEND Orthopaedic Surgery
DX: S69.92XA Unspecified injury of left wrist, hand and finger(s), initial encounter (principal)

== ENCOUNTER 2022-09-13 20:58 | Emergency (ER) | payer MEDICAID ==
--- NOTE | 2022-09-13 22:47 | XRAY Report ---
PROCEDURE: Hand 2 View LT INDICATIONS: Smashed in bet. wood, injured L 5th figer TECHNIQUE: 2 views of the left hand acquired. COMPARISON: None. FINDINGS: Bones: No fractures or dislocations. No suspicious bony lesions. Soft tissues: No radiopaque foreign bodies. No suspicious soft tissue calcifications or masses. IMPRESSION: 1. No fracture or dislocation. Reviewed by: Mckay Edwards MD on 09/13/2022 10:46 PM PDT Approved by: Mckay Edwards MD on 09/13/2022 10:46 PM PDT Station ID: [id number]
--- NOTE | 2022-09-13 23:23 | ED Physician Documentation ---
PD HPI UPPER EXT INJURY - Stated complaint Stated Complaint: LT FINGER INJ - Chief complaint Chief Complaint: Trauma Ext - History obtained from History obtained from: Patient - Additonal information Additional information: HPI from patient. Patient c/o sudden onset left fifth finger pain. Onset tonight when he was cutting wood when his finger was crushed between two pieces of stacked wood. Review of Systems Neurologic: denies: Focal weakness, Numbness PD PAST MEDICAL HISTORY - Past Medical History Cardiovascular: Other Respiratory: None Neuro: None Endocrine/Autoimmune: None GI: None : None HEENT: None Psych: None Musculoskeletal: None Derm: Psoriasis - Past Surgical History Past Surgical History: Yes General: Colonoscopy HEENT: Tonsil/Adenoidectomy - Present Medications Home Medications: Ambulatory Orders Medication Instructions Recorded Confirmed Levothyroxine [Synthroid] 50 mcg PO DAILY 05/09/16 03/01/17 Liothyronine [Cytomel] 5 mg PO DAILY 02/12/17 03/01/17 Famotidine [Pepcid] 20 mg PO BID #60 tablet 01/31/20 Ibuprofen [Motrin] 600 mg PO Q6H PRN #30 tab 01/31/20 diphenhydrAMINE [Benadryl] 25 mg PO BID #6 capsule 01/31/20 predniSONE [Prednisone] 40 mg PO DAILY #6 tablet 01/31/20 HYDROcod/ACETAM 5/325 [[place] 5/325] 1 - 2 tablet PO Q6H PRN #10 tablet 09/13/22 - Allergies Allergies/Adverse Reactions: Allergies Allergy/AdvReac Type Severity Reaction Status Date / Time No Known Drug Allergies Allergy Verified 01/31/20 15:51 - Social History Does the pt smoke?: No Smoking Status: Never smoker Does the pt drink ETOH?: Yes Does the pt have substance abuse?: Yes - Immunizations Immunizations are current?: Yes - POLST Patient has POLST: No PD ED PE NORMAL - Vitals Vital signs reviewed: Yes - General General: Alert and oriented X 3, No acute distress, Well developed/nourished PD ED PE EXPANDED - Extremities Extremities: Other (swelling, TTP, echymosis of left fith fingertip on palmar/flexor aspect. No subungual hematoma. no abrasion, no laceration. LTS intact at fingertip with <2 sec cap refill at tip. FROM (extension/flexion) ) TONY UE/Hands Visual: 1 - bruising, swelling, tenderness Results - Vitals Vitals: Oxygen O2 Source Room air - Rads (name of study) left hand xray Relevant Findings:: Prelim report reviewed, See rad report PD Medical Decision Making - ED course Complexity details: reviewed results, considered differential, d/w patient ED course: Crush injury to left fifth finger at distal phalanx, signs/symptoms predominantly on flexor / palmar aspect. No abnormality on xrays of the left hand. NVI on exam. Finger splint placed for protection against accidental contact which could otherwise cause further painful discomfort. Patient is driving home and thus given vicodin take-home pack with rx for same e-prescribed to his pharmacy of choice (patient had already taken acetaminophen and OTC NSAID at home without adequate relief earlier tonight) I am prescribing a short course of short-acting opioid pain medication for this patient. 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 I have discussed that the opioids are for short term therapy only, and will not be refilled from the ED. Departure - Departure Disposition: 01 Home, Self Care Clinical Impression: Injury, crush, finger Qualifiers: Encounter type: initial encounter Qualified Code(s): S67.10XA - Crushing injury of unspecified finger(s), initial encounter Condition: Good Instructions: ED Crush Injury Finger No Fx Prescriptions: HYDROcod/ACETAM 5/325 [[place] 5/325] 1 - 2 tablet PO Q6H PRN #10 tablet PRN Reason: Pain Comments: The x-rays are normal tonight; there is no evidence of fracture nor dislocation. Because this is still a very painful injury, A splint has been placed. The splint is placed to protect the fingertip from further injury. You do not need to wear it, but as long as it is not causing more pain, I would advise you to wear it for the next 4 to 5 days. A prescription for Vicodin (opiate/narcotic pain medication) has been electronically submitted to the [facility] pharmacy in [place]. I am prescribing a short course of narcotic pain medication for you. These are potentially dangerous and addictive medications that should be used carefully. These medications may constipate you. Take an loer-bxt-gycgcvr stool softener (docusate) twice daily with plenty of water while taking these medications. If you go 24 hours without a bowel movement, take fbmc-nlq-uilghdj miralax, per package instructions. Do not drink or drive while taking these medications. If you received narcotic or sedating medications while in the emergency department, do not drive for 24 hours. Store this medication in a safe, secure place and out of reach of children. It is a violation of federal law to give or sell this medication to another person or to use in a manner other than prescribed. The ED will not refill narcotic prescriptions, including prescriptions lost or stolen. To dispose of unwanted medications: 1. [facility] at [address] in [place] has a medication drop box. They accept prescription medications (in pill form) Tuesday through Tuesday 9:00 a.m. to 5:00 p.m. 2. The [facility] [employer] accepts prescription medications (in pill form only) for disposal year round. Call for more information. 3. Contact the [facility] for the next [facility] sponsored prescription drug collection event. , [phone], or [phone]; Discharge Date/Time: 09/13/22 23:57
[2022-09-13] MEDS: HYDROcod/ACET 5/325 Prepack 4 PO STA (23:54)
[2022-09-13 23:57] VITALS: BP 158/90
== END 2022-09-13 23:57 | disposition home or self-care (01) ==
LOC: ED 20:58
DX: S67.197A Crushing injury of left little finger, initial encounter (principal); W23.0XXA Caught, crushed, jammed, or pinched between moving objects, initial encounter; Y93.H9 Activity, other involving exterior property and land maintenance, building and construction
CPT/HCPCS: 99283

== ENCOUNTER 2022-10-05 16:07 | Emergency (ER) | payer MEDICAID ==
[2022-10-05] MEDS ORDERED: KETOROLAC 60 MG/2 ML VIAL IM STA (16:33)
--- NOTE | 2022-10-05 16:36 | ED Physician Documentation ---
PD HPI LOWER EXT INJURY - Stated complaint Stated Complaint: PAIN - Chief complaint Chief Complaint: Ext Problem - History obtained from History obtained from: Patient - Additional information Additional information: 61-year-old gentleman with history of hypothyroidism and insomnia. Otherwise fairly healthy. 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 He states that in the past he has had many episodes of hamstring tightness but its been particular bad especially on the left since last night. He tried to stretch it out but it was not really helpful. Also tried Tylenol and ibuprofen without relief. Denies fevers. 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 PD PAST MEDICAL HISTORY - Past Medical History Cardiovascular: Other Respiratory: None Neuro: None Endocrine/Autoimmune: None GI: None : None HEENT: None Psych: None Musculoskeletal: None Derm: Psoriasis - Past Surgical History Past Surgical History: Yes General: Colonoscopy HEENT: Tonsil/Adenoidectomy - Present Medications Home Medications: Ambulatory Orders Medication Instructions Recorded Confirmed Levothyroxine [Synthroid] 50 mcg PO DAILY 05/09/16 03/01/17 Liothyronine [Cytomel] 5 mg PO DAILY 02/12/17 03/01/17 Famotidine [Pepcid] 20 mg PO BID #60 tablet 01/31/20 Ibuprofen [Motrin] 600 mg PO Q6H PRN #30 tab 01/31/20 diphenhydrAMINE [Benadryl] 25 mg PO BID #6 capsule 01/31/20 predniSONE [Prednisone] 40 mg PO DAILY #6 tablet 01/31/20 HYDROcod/ACETAM 5/325 [[place] 5/325] 1 - 2 tablet PO Q6H PRN #10 tablet 09/13/22 Cyclobenzaprine [Flexeril] 10 mg PO TID PRN #20 tablet 10/05/22 HYDROcod/ACETAM 5/325 [[place] 5/325] 1 - 2 tab PO Q6H PRN #10 tablet 10/05/22 - Allergies Allergies/Adverse Reactions: Allergies Allergy/AdvReac Type Severity Reaction Status Date / Time No Known Drug Allergies Allergy Verified 01/31/20 15:51 - Social History Does the pt smoke?: No Smoking Status: Never smoker Does the pt drink ETOH?: Yes Does the pt have substance abuse?: Yes - Immunizations Immunizations are current?: Yes - POLST Patient has POLST: No PD ED PE NORMAL - Vitals Vital signs reviewed: Yes - General General: Alert and oriented X 3, Other (Intense affect) - Extremities Extremities: Other (Mild tenderness of the left hamstring muscle. Also mild pain if I extend the hamstring while he tries to flex it. There are some bruising laterally but nothing major and that is not where he is tender. No warmth, redness, crepitance, or signs of infection.) - Neuro Neuro: Alert and oriented X 3 Results - Vitals Vitals: Vital Signs - 24 hr 10/05/22 16:20 Temperature 35.9 C L Heart Rate 77 Respiratory 16 Rate Blood Pressure 167/88 H O2 Saturation 97 Oxygen O2 Source Room air - Labs Labs: Laboratory Tests 10/05/22 10/05/22 16:50 16:50 Urine Color YELLOW Urine Clarity CLEAR Urine pH 6.5 Ur Specific [employer] 1.010 Urine Protein NEGATIVE Urine Glucose (UA) NEGATIVE Urine Ketones NEGATIVE Urine Occult Blood NEGATIVE Urine Nitrite NEGATIVE Urine Bilirubin NEGATIVE Urine Urobilinogen 0.2 (NORMAL) Ur Leukocyte Esterase NEGATIVE Ur Microscopic Review NOT INDICATED Urine Culture Comments NOT INDICATED Urine Opiates Screen NEGATIVE Ur Oxycodone Screen NEGATIVE Urine Methadone Screen NEGATIVE Ur Propoxyphene Screen NEGATIVE Ur Barbiturates Screen NEGATIVE Ur Tricyclics Screen NEGATIVE Ur Phencyclidine Scrn NEGATIVE Ur Amphetamine Screen NEGATIVE U Methamphetamines Scrn NEGATIVE U Benzodiazepines Scrn POSITIVE H Urine Cocaine Screen NEGATIVE U Cannabinoids Screen NEGATIVE PD Medical Decision Making - ED course ED course: 61-year-old gentleman with left hamstring pain. He has had this in the past but this is the worst episode. He looks comfortable at rest without overt pain out of proportion to exam. That said very intense affect with occasional belligerence and swearing. His examination is relatively unremarkable, some tightness of the hamstring and pain with forced extension of the hamstring. That said, there is no sign of infection, no fevers, no skin crepitance or warmth or redness. He had slight relief with 60 mg of Toradol IM here, no further medications here as he was driving. DVT ultrasound was negative. Departure - Departure Disposition: 01 Home, Self Care Clinical Impression: Left leg pain Condition: Good Record reviewed to determine appropriate education?: Yes Instructions: ED Strain Muscle Ext Prescriptions: Cyclobenzaprine [Flexeril] 10 mg PO TID PRN #20 tablet PRN Reason: Spasms HYDROcod/ACETAM 5/325 [[place] 5/325] 1 - 2 tab PO Q6H PRN #10 tablet PRN Reason: Pain Comments: I sent your prescriptions electronically to [facility] in [place]. Return for new or worsening symptoms. Follow-up with your doctor later in the week if not improved with consideration for physical therapy and further evaluation and treatment. I am prescribing a short course of narcotic pain medication for you. These are potentially dangerous and addictive medications that should be used carefully. These medications may constipate you. Take an ybnx-zlx-ofdcsod stool softener (docusate) twice daily with plenty of water while taking these medications. If you go 24 hours without a bowel movement, take lzqu-rtn-xuatrqi miralax, per package instructions. Do not drink or drive while taking these medications. If you received narcotic or sedating medications while in the emergency department, do not drive for 24 hours. Store this medication in a safe, secure place and out of reach of children. It is a violation of federal law to give or sell this medication to another person or to use in a manner other than prescribed. The ED will not refill narcotic prescriptions, including prescriptions lost or stolen. To dispose of unwanted medications: 1. [facility] at [address] in [place] has a medication drop box. They accept prescription medications (in pill form) Tuesday through Tuesday 9:00 a.m. to 5:00 p.m. 2. The [facility] accepts prescription medications (in pill form only) for disposal year round. Call for more information. 3. Contact the [facility] for the next [facility] sponsored prescription drug collection event. , [phone], or [phone]; Note that many narcotic pain relievers also contain Tylenol/acetaminophen. Please ensure that your total dose of acetaminophen from all sources does not exceed 3 g (3000 mg) per day.
[2022-10-05 17:09] LABS: BILIRUBIN,URINE NEGATIVE (NEGATIVE); GLUCOSE, URINE (UA) NEGATIVE (NEGATIVE); KETONES,URINE (UA) NEGATIVE (NEGATIVE); LEUKOCYTE ESTERASE, URINE NEGATIVE (NEGATIVE); MUDS CUTOFF CONCENTRATIONS CUTOFF CONC BELOW:; NITRITE,URINE NEGATIVE (NEGATIVE); OCCULT BLOOD,URINE NEGATIVE (NEGATIVE); PH,URINE 6.5 PH (5.0-7.5); PROTEIN,URINE NEGATIVE (NEGATIVE); UROBILINOGEN,URINE 0.2 (NORMAL) E.U./dL (NORMAL)
[2022-10-05 17:11] LABS: CLARITY,URINE CLEAR (CLEAR)
[2022-10-05 17:23] LABS: AMPHETAMINE SCREEN,URINE NEGATIVE (NEGATIVE); COCAINE SCREEN URINE NEGATIVE (NEGATIVE); METHAMPHETAMINES SCREEN, URINE NEGATIVE (NEGATIVE); OPIATE SCREEN, URINE NEGATIVE (NEGATIVE); THC CANNABINOID SCREEN, URINE NEGATIVE (NEGATIVE)
[2022-10-05 17:24] LABS: BARBITURATE SCREEN,UR NEGATIVE (NEGATIVE); BENZODIAZEPINES SCREEN, URINE POSITIVE (NEGATIVE); METHADONE SCREEN, URINE NEGATIVE (NEGATIVE); OXYCODONE SCREEN, URINE NEGATIVE (NEGATIVE); PROPOXYPHENE SCREEN, URINE NEGATIVE (NEGATIVE); TRICYCLIC ANTIDEPRESSANT,URINE NEGATIVE (NEGATIVE)
[2022-10-05 17:42] VITALS: BP 163/94
--- NOTE | 2022-10-05 17:45 | Ultrasound Report ---
PROCEDURE: Duplex Ext Veins Left INDICATIONS: LLE pain TECHNIQUE: Real-time imaging, as well as color and pulse Doppler interrogation, were performed of the lower extr emity deep veins from the inguinal ligament to the popliteal fossa. COMPARISON: None. FINDINGS: The deep veins are normally compressible, and free of intraluminal thrombus. Color and pu lse Doppler demonstrate normal phasic intraluminal flow. There is normal augmentation response to di stal compression maneuver. IMPRESSION: No DVT in the left posterior medially. Reviewed by: India Hodgson MD on 10/05/2022 5:44 PM PDT Approved by: India Hodgson MD on 10/05/2022 5:44 PM PDT Station ID: [id number]
== END 2022-10-05 17:40 | disposition home or self-care (01) ==
LOC: ED 16:07
DX: M79.652 Pain in left thigh (principal)
CPT/HCPCS: 80306; 81001; 81003; 87086; 96372; 99283; 99284

== ENCOUNTER 2022-10-09 09:38 | Emergency (ER) | payer MEDICAID ==
--- NOTE | 2022-10-09 10:00 | ED Physician Documentation ---
PD HPI LOWER EXT INJURY - Stated complaint Stated Complaint: LT LEG PX - Chief complaint Chief Complaint: Trauma Ext - History obtained from History obtained from: Patient - History of Present Illness PD HPI LOW EXT INJURY LOCATION: Left, Thigh Type of injury: Twist (he has pain in back of thigh and toward the lateral hip, hurting with walking and moving. Seen in ER with Dx muscle strain, Rx with flexeril and Ibuprofen, and hydrocodone. Had U/S to exclude DVT.) Timing - onset: How many days ago (4-5) Timing - duration: Days (4-5) Timing - details: Abrupt onset, Still present (he was expecting this to have gotten better by the 4-5 days now.) Worsened by: Moving. No: Palpating Associated symptoms: Swelling (feeling of tightness in thigh and back of leg.). No: Weakness, Numbness PD PAST MEDICAL HISTORY - Past Medical History Cardiovascular: Other Respiratory: None Neuro: None Endocrine/Autoimmune: None GI: None : None HEENT: None Psych: None Musculoskeletal: None Derm: Psoriasis - Past Surgical History Past Surgical History: Yes General: Colonoscopy HEENT: Tonsil/Adenoidectomy - Present Medications Home Medications: Ambulatory Orders Medication Instructions Recorded Confirmed Levothyroxine [Synthroid] 50 mcg PO DAILY 05/09/16 10/09/22 Liothyronine [Cytomel] 5 mg PO DAILY 02/12/17 10/09/22 Ibuprofen [Motrin] 600 mg PO Q6H PRN #30 tab 01/31/20 10/09/22 Cyclobenzaprine [Flexeril] 10 mg PO TID PRN #20 tablet 10/05/22 10/09/22 Meloxicam [Mobic] 7.5 mg PO BID 10 Days #20 tablet 10/09/22 oxyCODONE [Roxicodone] 5 mg PO Q6H PRN #18 tablet 10/09/22 oxyCODONE [Roxicodone] 5 mg PO Q6H PRN #18 tablet 10/09/22 tiZANidine [Zanaflex] 4 mg PO Q8H PRN #25 tablet 10/09/22 - Allergies Allergies/Adverse Reactions: Allergies Allergy/AdvReac Type Severity Reaction Status Date / Time No Known Drug Allergies Allergy Verified 10/09/22 09:47 - Social History Does the pt smoke?: No Smoking Status: Never smoker Does the pt drink ETOH?: Yes Does the pt have substance abuse?: Yes - Immunizations Immunizations are current?: Yes - POLST Patient has POLST: No PD ED PE NORMAL - Vitals Vital signs reviewed: Yes - General General: Alert and oriented X 3, Well developed/nourished, Other (more comfortable standing as flexing and then up again hurts. ) - Derm Derm: Normal color, Warm and dry - Extremities Extremities: No edema, No calf tenderness / cord, Other (hamstrings not tender. Posterior thigh upper with muscle tendernesss. No skin sores nor rash. Lower back not tender.) - Neuro Neuro: No motor deficit, No sensory deficit Results - Vitals Vitals: Vital Signs - 24 hr 10/09/22 10/09/22 09:42 11:16 Temperature 36.6 C Heart Rate 65 60 Respiratory 16 16 Rate Blood Pressure 134/91 H 130/84 H O2 Saturation 100 98 Oxygen O2 Source Room air PD Medical Decision Making - ED course Complexity details: reviewed old records (prior visit and ultrasound report.), considered differential (seems like muscle strain. has beendoing some physical work and thigh not improving. This type of injury could be 2-3 weeks improving or more. The patient was expecting shorter so this gave him better expectation. ), d/w patient Departure - Departure Disposition: 01 Home, Self Care Clinical Impression: Muscle strain of thigh Qualifiers: Encounter type: subsequent encounter Laterality: left Qualified Code(s): S76.912D - Strain of unspecified muscles, fascia and tendons at thigh level, left thigh, subsequent encounter Condition: Stable Record reviewed to determine appropriate education?: Yes Follow-Up: Wes Snyder MD [Primary Care Provider] - [facility] [Provider Group] Prescriptions: Meloxicam [Mobic] 7.5 mg PO BID 10 Days #20 tablet oxyCODONE [Roxicodone] 5 mg PO Q6H PRN #18 tablet PRN Reason: Pain oxyCODONE [Roxicodone] 5 mg PO Q6H PRN #18 tablet PRN Reason: Pain tiZANidine [Zanaflex] 4 mg PO Q8H PRN #25 tablet PRN Reason: Spasms Comments: Minimize the amount of work and activity over the next several days at least. Use the crutches for partial weightbearing to reduce muscle use in the thigh and hip. Nonweightbearing and lifting the leg will actually use the muscles more so just take some of the pressure off with the crutches. We can try different anti-inflammatory and muscle relaxant as well as adding Tylenol 650 mg 4 times daily and to that oxycodone every 6 hours if needed for pain. I sent new prescriptions to the [facility] pharmacy in [place]. Follow-up with your primary care and could also follow-up with orthopedics this coming week. I would anticipate better improvement over the next several days to week but this may be a good 2 or 3 weeks for full healing at least. My narcotic instructions I am prescribing a short course of narcotic pain medication for you. These are potentially dangerous and addictive medications that should be used carefully. These medications may constipate you. Take an puyi-ipo-kiveagp stool softener such as docusate twice daily with plenty of water while taking these medications. If you go 24 hours without a bowel movement, take hnou-mef-kesjnvg MiraLAX, per package instructions. Do not drink or drive while taking these medications. If you received narcotic or sedating medications while in the emergency department do not drive for 24 hours. Store this medication in a safe, secure place and out of reach of children. It is a violation of federal law to give or sell this medication to another person or to use in a manner other than prescribed. The ED will not refill narcotic prescriptions, including prescriptions lost or stolen. You can dispose of unwanted medications at the [facility]'s office or at several pharmacies such as [facility]. Discharge Date/Time: 10/09/22 11:17
[2022-10-09 11:20] VITALS: BP 130/84
== END 2022-10-09 11:17 | disposition home or self-care (01) ==
LOC: ED 09:38
DX: S76.912A Strain of unspecified muscles, fascia and tendons at thigh level, left thigh, initial encounter (principal); X50.1XXA Overexertion from prolonged static or awkward postures, initial encounter
CPT/HCPCS: 99283

== ENCOUNTER 2022-10-13 09:50 | Emergency (ER) | payer MEDICAID ==
[2022-10-13 10:09] VITALS: BP 90/60
--- NOTE | 2022-10-13 12:52 | ED Physician Documentation ---
History of Present Illness - Stated complaint Stated Complaint: LT LEG PX - Chief complaint Chief Complaint: Ext Problem - Additonal information Additional information: 61-year-old male presents emergency department for evaluation of acute left hamstring injury. Patient reports doing heavy lifting on 04 October though does not remember an inciting event since then he has had pain in his posterior hamstring region that often radiates up into the buttock. States exquisite pain. He has been seen in the ER twice before for this injury. He had a negative ultrasound several days ago. Reports Paris is not effective. He is requesting an MRI. States his primary care doctor told him to come to the ER. He was referred to physical therapy but a slot is not available until late November. Review of Systems Constitutional: denies: Fever Musculoskeletal: reports: Extremity pain PD PAST MEDICAL HISTORY - Past Medical History Cardiovascular: Other Respiratory: None Neuro: None Endocrine/Autoimmune: None GI: None : None HEENT: None Psych: None Musculoskeletal: None Derm: Psoriasis - Past Surgical History Past Surgical History: Yes General: Colonoscopy HEENT: Tonsil/Adenoidectomy - Present Medications Home Medications: Ambulatory Orders Medication Instructions Recorded Confirmed Levothyroxine [Synthroid] 50 mcg PO DAILY 05/09/16 10/09/22 Liothyronine [Cytomel] 5 mg PO DAILY 02/12/17 10/09/22 Ibuprofen [Motrin] 600 mg PO Q6H PRN #30 tab 01/31/20 10/09/22 Cyclobenzaprine [Flexeril] 10 mg PO TID PRN #20 tablet 10/05/22 10/09/22 Meloxicam [Mobic] 7.5 mg PO BID 10 Days #20 tablet 10/09/22 oxyCODONE [Roxicodone] 5 mg PO Q6H PRN #18 tablet 10/09/22 oxyCODONE [Roxicodone] 5 mg PO Q6H PRN #18 tablet 10/09/22 tiZANidine [Zanaflex] 4 mg PO Q8H PRN #25 tablet 10/09/22 oxyCODONE [Roxicodone] 5 mg PO DAILY #5 tablet 10/13/22 - Allergies Allergies/Adverse Reactions: Allergies Allergy/AdvReac Type Severity Reaction Status Date / Time No Known Drug Allergies Allergy Verified 10/13/22 09:57 - Social History Does the pt smoke?: No Smoking Status: Never smoker Does the pt drink ETOH?: Yes Does the pt have substance abuse?: Yes - Immunizations Immunizations are current?: Yes - POLST Patient has POLST: No PD ED PE EXPANDED - General General: Alert, No acute distress - Extremities Extremities: Left leg (Tenderness of the left hamstring. Most of the pain is present with full extension of the leg and hamstring. No obvious bruising. Antalgic gait. 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 This is his third ED visit for similar. He reports he like something stronger than Paris for pain as its not effective. His PCP did make a referral for him to physical therapy though a slot is not available until November. The patient is requesting an MRI today. On exam the patient does have some pain in the body of the hamstring mostly with extension of the knee. He does have an antalgic gait. No significant swelling or erythema or ecchymosis or findings to suggest infection. He did have an ultrasound completed several days ago that was negative for DVT. I did call MRI but there was no availability for imaging today. I discussed with patient that his PCP could make a referral for MRI. May also benefit from referral to orthopedics. I did obtain an x-ray of the hip and pelvis to evaluate for an avulsion fracture which was per my interpretation negative. As such the patient is going to be discharged home to follow closely with PCP. I have written for 5 oxycodone tablets. I reiterated to the patient that we would be unable to refill these moving forward. I am prescribing a short course of short-acting opioid pain medication for this patient. I have reviewed the patients [employer]PER[employer]OR and no concerning findings were noted. I have discussed that the opioids are for short term therapy only, and will not be refilled from the ED. Departure - Departure Disposition: 01 Home, Self Care Clinical Impression: Left hamstring injury Qualifiers: Encounter type: initial encounter Qualified Code(s): S76.302A - Unspecified injury of muscle, fascia and tendon of the posterior muscle group at thigh level, left thigh, initial encounter Condition: Stable Record reviewed to determine appropriate education?: Yes Prescriptions: oxyCODONE [Roxicodone] 5 mg PO DAILY #5 tablet Comments: Amadeo you return to the emergency department today because of pain in your posterior hamstring. There was no MRI availability today. You do need to arrange MRI with your primary care doctor. In general I would like you to wear the Tomer bandage when out of bed each day. You can take it off at night. I advised to use crutches for the next several days to help the hamstring heal continuing to try and walk on it may be exacerbating the injury. Icing her posterior hamstring for 10 minutes 2-3 times a day can also be helpful. Your primary care provider may make a referral for you to orthopedics. These are the bone doctors that often help people heal from sports related injuries. I did take an x-ray of your left pelvis and femur region to make sure there was no avulsion fracture. I do not see an avulsion fracture today. I have written a limited prescription for oxycodone. I cannot write for anything stronger or more than I have prescribed today. In addition the emergency department cannot refill this moving forward. You will need to di scuss with Dr. Snyder how to manage your pain moving forward. I am prescribing a short course of narcotic pain medication for you. These are potentially dangerous and addictive medications that should be used carefully. These medications may constipate you. Take an [id number] stool softener (docusate) twice daily with plenty of water while taking these medications. If you go 24 hours without a bowel movement, take [id number] miralax, per package instructions. Do not drink or drive while taking these medications. If you received narcotic or sedating medications while in the emergency department, do not drive for 24 hours. Store this medication in a safe, secure place and out of reach of children. It is a violation of federal law to give or sell this medication to another pers on or to use in a manner other than prescribed. The ED will not refill narcotic prescriptions, including prescriptions lost or stolen. To dispose of unwanted medications: 1. [facility] at [address] in [place] has a medication drop box. They accept prescription medications (in pill form) Tuesday through Tuesday 9:00 a.m. to 5:00 p.m. 2. The [facility] accepts prescription medications (in pill form only) for disposal year round. Call for more information. 3. Contact the [facility] for the next [facility] sponsored prescription drug collection event. , [phone], or [phone]; Note that many narcotic pain relievers also contain Tylenol/acetaminophen. Please ensure that your total dose of acetaminophen from all sources does not exceed 3 g (3000 mg) per day.
--- NOTE | 2022-10-13 14:23 | XRAY Report ---
PROCEDURE: Hip w/Pelvis 2-3V LT INDICATIONS: HAMSTRING PAIN; ? AVULSION FRACTURE TECHNIQUE: AP pelvis with lateral view(s) of the left hip(s). COMPARISON: None. FINDINGS: Bones: No fractures or dislocations. No suspicious bony lesions. Soft tissues: No suspicious soft tissue calcifications or masses. IMPRESSION: No acute bony abnormality. If there remains a high clinical concern for fracture, consider cross-sect ional imaging now. If pain persists, consider repeat x-ray in 10-14 days or cross-sectional imaging. Reviewed by: Gene Lyon MD on 10/13/2022 2:21 PM PDT Approved by: Gene Lyon MD on 10/13/2022 2:21 PM PDT Station ID: [id number]
== END 2022-10-13 13:12 | disposition home or self-care (01) ==
LOC: ED 09:50
DX: S76.302A Unspecified injury of muscle, fascia and tendon of the posterior muscle group at thigh level, left thigh, initial encounter (principal); X50.1XXA Overexertion from prolonged static or awkward postures, initial encounter; Z79.899 Other long term (current) drug therapy
CPT/HCPCS: 99283; 99284

== ENCOUNTER 2022-11-19 06:48 | Outpatient (CLI) | payer MEDICAID ==
--- NOTE | 2022-11-19 08:09 | XRAY Report ---
PROCEDURE: Skull Complete INDICATIONS: acquired skull defect TECHNIQUE: 4 view(s) of the skull acquired. COMPARISON: none FINDINGS: Bones: No fractures. No suspicious bony lesions. Visualized sinuses appear clear. Soft tissues: No soft tissue calcifications. No suspicious soft tissue densities. IMPRESSION: No metallic densities. Reviewed by: Rizwana Burroughs MD on 11/19/2022 8:07 AM PDT Approved by: Rizwana Burroughs MD on 11/19/2022 8:07 AM PDT Station ID: [id number]
--- NOTE | 2022-11-19 20:10 | MRI Report ---
PROCEDURE: FEMUR/THIGH WO - LT INDICATIONS: HAMSTRING TENDINITIS, SKULL DEFECT TECHNIQUE: Noncontrast coronal, axial, and sagittal T1 spin echo and STIR through the left femur. COMPARISON: Left hip radiographs 10/13/2022 FINDINGS: Image quality: Images are degraded by metal artifact related to a metal foreign body near the hip, w hich obscures adjacent structures. Diagnostic information is obtained. Bones: The visualized bone marrow demonstrates normal signal on all sequences. Portions of the left hip are obscured by metal artifact. The overlying cortex appears intact. No fractures lines or intr a-osseous lesions. Soft tissues: The lateral proximal hamstring tendinosis is seen adjacent to the ischial tuberosities with suspected low-grade partial intrasubstance tearing on both sides. The musculature of the left t high is normal in signal intensity and bulk. No soft tissue mass is seen. The visualized portions of the distal hamstring tendons appear to be intact. The included portions of the pelvis demonstrate no significant abnormality. IMPRESSION: 1.Mild tendinosis of the proximal hamstring tendons bilaterally and suspected low-grade partial intra substance tearing at the bilateral hamstring origins. 2.Metallic foreign body near the left hip results in metal artifact that obscures surrounding structu res. Reviewed by: Robert Buck MD on 11/19/2022 8:09 PM PDT Approved by: Robert Buck MD on 11/19/2022 8:09 PM PDT Station ID: [id number]
== END 2022-11-19 06:49 | disposition home or self-care (01) ==
LOC: DI 06:48
PROVIDERS: ATTEND Internal Medicine
DX: M76.892 Other specified enthesopathies of left lower limb, excluding foot (principal); M95.2 Other acquired deformity of head

== ENCOUNTER 2022-11-22 06:41 | Emergency (ER) | payer MEDICAID ==
[2022-11-22 07:24] VITALS: BP 167/100
--- NOTE | 2022-11-22 07:35 | ED Physician Documentation ---
History of Present Illness - Stated complaint Stated Complaint: LT LEG PX - Chief complaint Chief Complaint: General - History obtained from History obtained from: Patient - Additonal information Additional information: The patient comes to the emergency department chief complaint of left hamstring pain that has been ongoing for 7 weeks. He has seen his primary care physician, though apparently, got into some sort of argument over the phone with the front office staff and was discharged from the practice. The patient states that he is appealing this at this time, but that for the past few weeks, he has not had a primary care physician. He did go for an MRI a few days ago that his doctor had already ordered and he was for which she was already scheduled. He does not know the results of this. The patient states the initial injury did not seem to be anything very distinct. He does not remember feeling an exact onset of pain or any sort of twinge, snap, or pop. He states that he has been waiting to get into physical therapy and finally has an appointment coming up in 8 days. He has been trying to do some stretches but is not really sure if he is doing it right. The patient states that his hamstring just hurts all the time and that for quite a while he could not straighten his leg at all. He states that with stretching, he has been able to improve the flexibility quite a bit. The patient mainly is here for pain control, he states. He was getting prescriptions for hydrocodone from his primary doctor, the last of which he filled on November 12 according to records. However, since he cannot be seen in the clinic anymore, he does not have anyone to prescribe for his pain. He has been trying to take ibuprofen and Tylenol but these are not adequately controlling the pain. No reinjury. No other complaints at this time. PD PAST MEDICAL HISTORY - Past Medical History Cardiovascular: Other Respiratory: None Neuro: None Endocrine/Autoimmune: None GI: None : None HEENT: None Psych: None Musculoskeletal: None Derm: Psoriasis - Past Surgical History Past Surgical History: Yes General: Colonoscopy HEENT: Tonsil/Adenoidectomy - Present Medications Home Medications: Ambulatory Orders Medication Instructions Recorded Confirmed Levothyroxine [Synthroid] 50 mcg PO DAILY 05/09/16 10/09/22 Liothyronine [Cytomel] 5 mg PO DAILY 02/12/17 10/09/22 Ibuprofen [Motrin] 600 mg PO Q6H PRN #30 tab 01/31/20 10/09/22 Cyclobenzaprine [Flexeril] 10 mg PO TID PRN #20 tablet 10/05/22 10/09/22 Meloxicam [Mobic] 7.5 mg PO BID 10 Days #20 tablet 10/09/22 oxyCODONE [Roxicodone] 5 mg PO Q6H PRN #18 tablet 10/09/22 oxyCODONE [Roxicodone] 5 mg PO Q6H PRN #18 tablet 10/09/22 tiZANidine [Zanaflex] 4 mg PO Q8H PRN #25 tablet 10/09/22 oxyCODONE [Roxicodone] 5 mg PO DAILY #5 tablet 10/13/22 HYDROcod/ACETAM 5/325 [[place] 5/325] 1 - 2 tablet PO Q6H PRN #20 tablet 11/22/22 - Allergies Allergies/Adverse Reactions: Allergies Allergy/AdvReac Type Severity Reaction Status Date / Time No Known Drug Allergies Allergy Verified 11/22/22 07:17 - Social History Does the pt smoke?: No Smoking Status: Never smoker Does the pt drink ETOH?: Yes Does the pt have substance abuse?: Yes - Immunizations Immunizations are current?: Yes - POLST Patient has POLST: No PD ED PE NORMAL - Vitals Vital signs reviewed: Yes - General General: Alert and oriented X 3, No acute distress, Well developed/nourished - HEENT HEENT: Atraumatic, PERRL, EOMI, Moist mucous membranes - Neck Neck: Supple, no meningeal sign - Respiratory Respiratory: No respiratory distress - Derm Derm: Normal color, Warm and dry, No rash - Extremities Extremities: No deformity, Other (Tenderness over the mid belly of the hamstrings on the left. Full extension noted actively. No mass or deformity.) - Neuro Neuro: Alert and oriented X 3 - Psych Psych: Normal mood, Normal affect Results - Vitals Vitals: Vital Signs - 24 hr 11/22/22 07:00 Temperature 36.4 C L Heart Rate 57 L Respiratory 16 Rate Blood Pressure 167/100 H O2 Saturation 100 Oxygen O2 Source Room air PD Medical Decision Making - ED course Complexity details: considered differential, d/w patient ED course: I had a long discussion with this patient regarding his symptoms, approach to injury, and pain control. I discussed with him that it is very important that he stays plugged in with primary care, whether with his current doctor, Dr. Snyder by way of appeal, or whether by getting a new primary care physician. I discussed with the patient that it is important to engage in some use of the injured muscle, but not in a strenuous way. Stretching is very important and we have discussed using heat before and ice afterward. We have also discussed avoiding activities which seem to particularly exacerbate the pain. I have reviewed the patient's MRI that was done a few days ago and it does seem that melissa montenegro has both some tearing and tendinosis of his left hip Stearn. I will refill the patient's pain medication today, but he has been advised that further prescriptions will need to come from his primary doctor, or he will need to adjust his expectations of pain control. We have discussed the usual indications for return. Departure - Departure Disposition: 01 Home, Self Care Clinical Impression: Left hamstring muscle strain Qualifiers: Encounter type: initial encounter Qualified Code(s): S76.312A - Strain of muscle, fascia and tendon of the posterior muscle group at thigh level, left thigh, initial encounter Condition: Stable Instructions: ED Strain Muscle Ext Prescriptions: HYDROcod/ACETAM 5/325 [[place] 5/325] 1 - 2 tablet PO Q6H PRN #20 tablet PRN Reason: Pain Comments: A prescription for pain medication has been electronically transmitted to the [facility] pharmacy in [place]. You will need to obtain all further pain medication for this ongoing condition from your primary care office. Your MRI reading has been reviewed and the radiologist has noted a low-grade partial tear within your upper hamstrings. You are also noted to have some tendinosis within your hamstrings, which is a degeneration of the tendon's collagen in response to chronic overuse. This indicates that you need to give your hamstring tendons more time to heal and rest to help preserve the integrity of your hamstring, and to help resolve the chronic and ongoing inflammation, which is contributing to your pain and stiffness. You should continue to use he at and ice, along with stretching, as we discussed. Please continue your plans to follow-up with physical therapy, and please reestablish with primary care soon as possible.
== END 2022-11-22 07:43 | disposition home or self-care (01) ==
LOC: ED 06:41
DX: S76.312A Strain of muscle, fascia and tendon of the posterior muscle group at thigh level, left thigh, initial encounter (principal); X58.XXXA Exposure to other specified factors, initial encounter
CPT/HCPCS: 99281; 99283

== ENCOUNTER 2023-01-04 08:00 | Outpatient (CLI) | payer MEDICAID ==
--- NOTE | 2023-01-04 11:59 | XRAY Report ---
PROCEDURE: Femur LT INDICATIONS: LEFT THIGH PAIN/INJURY TECHNIQUE: 2 views of the femur were acquired. COMPARISON: None. FINDINGS: Bones: No fractures or dislocations. No suspicious bony lesions. Soft tissues: No suspicious soft tissue calcifications or masses. IMPRESSION: No acute bony abnormality. Reviewed by: Gene Lyon MD on 01/04/2023 11:58 AM PDT Approved by: Gene Lyon MD on 01/04/2023 11:58 AM PDT Station ID: [id number]
== END 2023-01-04 23:59 | disposition home or self-care (01) ==
LOC: DI.WOS 08:00
PROVIDERS: ATTEND Physician Assistant Surgical
DX: M76.899 Other specified enthesopathies of unspecified lower limb, excluding foot (principal)

== ENCOUNTER 2023-12-15 09:47 | Outpatient (CLI) | payer MEDICAID ==
[2023-12-15 10:00] LABS: BASOPHILS # (AUTO) 0.1 10^3/uL (0.0-0.1); EOSINOPHILS # (AUTO) 0.3 10^3/uL (0.0-0.7); EOSINOPHILS % (AUTO) 4.7 %; HCT - HEMATOCRIT 36.9 % (42.0-52.0); HGB - HEMOGLOBIN 12.2 g/dL (14.0-18.0); LYMPHOCYTES # (AUTO) 1.1 10^3/uL (1.5-3.5); MEAN CORPUSCULAR HEMOGLOBIN 29.3 pg (27.0-31.0); MEAN CORPUSCULAR HGB CONC 33.1 g/dL (32.0-36.0); MEAN CORPUSCULAR VOLUME 88.5 fL (80.0-94.0); MONOCYTES # (AUTO) 0.5 10^3/uL (0.0-1.0); MONOCYTES % (AUTO) 9.2 %; NEUTROPHILS # (AUTO) 3.8 10^3/uL (1.5-6.6); NEUTROPHILS % (AUTO) 65.8 %; PLT - PLATELET COUNT 248 10^3/uL (130-450); RED BLOOD COUNT 4.17 10^6/uL (4.70-6.10); RED CELL DISTRIBUTION WIDTH 13.2 % (12.0-15.0); WHITE BLOOD COUNT 5.7 x10^3/uL (4.8-10.8)
[2023-12-15 10:21] LABS: ALBUMIN 4.1 g/dL (3.2-5.5); ALBUMIN/GLOBULIN RATIO 1.9 (1.0-2.2); ALKALINE PHOSPHATASE 60 IU/L (42-121); ALT ALANINE AMINOTRANSFERASE 20 IU/L (10-60); AST ASPARTATE AMINOTRANSFERASE 24 IU/L (10-42); BILIRUBIN,TOTAL 0.8 mg/dL (0.2-1.0); BUN - BLOOD UREA NITROGEN 14 mg/dL (6-20); CALCIUM 9.2 mg/dL (8.5-10.3); CARBON DIOXIDE - CO2 27 mmol/L (21-32); CHLORIDE 105 mmol/L (101-111); CHOL/HDL RATIO 2.8 (<5.0); CHOLESTEROL 148 mg/dL; GFR - MDRD 76 (>89); GLUCOSE 85 mg/dL (74-104); HDL CHOLESTEROL 53 mg/dL; LDL CHOLESTEROL,CALCULATED 86 mg/dL; LDL/HDL RATIO 1.6 (<3.6); POTASSIUM 3.8 mmol/L (3.5-4.5); SODIUM 136 mmol/L (135-145); TOTAL PROTEIN 6.3 g/dL (6.4-8.9); TRIGLYCERIDES 46 mg/dL; VLDL CHOLESTEROL 9 mg/dL
[2023-12-15 10:37] LABS: THYROID STIMULATING HORMONE 2.92 uIU/mL (0.34-5.60)
[2023-12-15 17:45] LABS: % IRON SATURATION 26 % (20-50); CRP - C-REACTIVE PROTEIN < 0.5 mg/dL (<0.5); IRON 99 ug/dL (50-212); TOTAL IRON BINDING CAPACITY 381 ug/dL (250-450); TRANSFERRIN 272 mg/dL (203-362)
[2023-12-15 18:03] LABS: FERRITIN 13.5 ng/mL (23.9-336.2)
== END 2023-12-15 09:48 | disposition home or self-care (01) ==
LOC: LAB 09:47
PROVIDERS: ATTEND Internal Medicine
DX: E03.9 Hypothyroidism, unspecified (principal); D64.9 Anemia, unspecified; Z13.1 Encounter for screening for diabetes mellitus; Z13.220 Encounter for screening for lipoid disorders; Z12.5 Encounter for screening for malignant neoplasm of prostate; Z13.0 Encounter for screening for diseases of the blood and blood-forming organs and certain disorders involving the immune mechanism
CPT/HCPCS: 36415; 80053; 80061; 82607; 82728; 83540; 83721; 84153; 84439; 84443; 84466; 85025; 85651; 86140

== ENCOUNTER 2023-12-15 17:10 | Outpatient (CLI) | payer MEDICAID | END 2023-12-15 17:11 | disposition home or self-care (01) | LOC: LAB.N 17:10 | PROVIDERS: ATTEND Internal Medicine | DX: Z53.9 Procedure and treatment not carried out, unspecified reason (principal) ==

== ENCOUNTER 2024-01-06 17:43 | Emergency (ER) | payer MEDICAID ==
[2024-01-06 17:59] VITALS: BP 137/80; O2SAT 100
--- NOTE | 2024-01-06 18:03 | ED Physician Documentation ---
History of Present Illness - Stated complaint Stated Complaint: MHE - Chief complaint Chief Complaint: MHE - History obtained from History obtained from: Patient - Additonal information Additional information: 63-year-old gentleman with chronic anxiety is having a bad day with regard to his anxiety. His issues revolve around finances and work and he has a therapist who referred him here for. No SI or HI. He has taken lorazepam in the past with improvement. He has seen a psychiatrist in the past and it sounds like he was put on antidepressants, not clear which 1. That did not tolerate the side effects. PD PAST MEDICAL HISTORY - Past Medical History Cardiovascular: Other Respiratory: None Neuro: None Endocrine/Autoimmune: None GI: None : None HEENT: None Psych: None Musculoskeletal: None Derm: Psoriasis - Past Surgical History Past Surgical History: Yes General: Colonoscopy HEENT: Tonsil/Adenoidectomy - Present Medications Home Medications: Ambulatory Orders Medication Instructions Recorded Confirmed Levothyroxine [Synthroid] 50 mcg PO DAILY 05/09/16 10/09/22 Liothyronine [Cytomel] 5 mg PO DAILY 02/12/17 10/09/22 Ibuprofen [Motrin] 600 mg PO Q6H PRN #30 tab 01/31/20 10/09/22 Cyclobenzaprine [Flexeril] 10 mg PO TID PRN #20 tablet 10/05/22 10/09/22 Meloxicam [Mobic] 7.5 mg PO BID 10 Days #20 tablet 10/09/22 oxyCODONE [Roxicodone] 5 mg PO Q6H PRN #18 tablet 10/09/22 oxyCODONE [Roxicodone] 5 mg PO Q6H PRN #18 tablet 10/09/22 tiZANidine [Zanaflex] 4 mg PO Q8H PRN #25 tablet 10/09/22 oxyCODONE [Roxicodone] 5 mg PO DAILY #5 tablet 10/13/22 HYDROcod/ACETAM 5/325 [[place] 5/325] 1 - 2 tablet PO Q6H PRN #20 tablet 11/22/22 LORazepam [Ativan] 1 mg PO TID PRN #12 tablet 01/06/24 - Allergies Allergies/Adverse Reactions: Allergies Allergy/AdvReac Type Severity Reaction Status Date / Time No Known Drug Allergies Allergy Verified 01/06/24 17:50 - Social History Does the pt smoke?: No Smoking Status: Never smoker Does the pt drink ETOH?: Yes Does the pt have substance abuse?: Yes - Immunizations Immunizations are current?: Yes - POLST Patient has POLST: No PD ED PE NORMAL - General General: Alert and oriented X 3, No acute distress - Neuro Neuro: Alert and oriented X 3 - Psych Psych: Normal mood, Normal affect Results - Vitals Vitals: Vital Signs - 24 hr 01/06/24 17:46 Temperature 36.6 C Heart Rate 65 Respiratory 18 Rate Blood Pressure 137/80 H O2 Saturation 100 Oxygen O2 Source Room air PD Medical Decision Making - ED course ED course: He presents for anxiety medicine. No evidence of intoxication he denies recent alcohol use although it has been a problem in the past. No SI or HI. Departure - Departure Disposition: 01 Home, Self Care Clinical Impression: Anxiety Condition: Good Record reviewed to determine appropriate education?: Yes Instructions: ED Stress React Prescriptions: LORazepam [Ativan] 1 mg PO TID PRN #12 tablet PRN Reason: Anxiety Comments: I sent your prescription electronically to the [facility] in [place]. Do not drink or drive while taking Ativan. Follow-up with your therapist with consideration for referral for psychiatry. Return for new or worsening symptoms. Forms: PCP List
== END 2024-01-06 18:05 | disposition home or self-care (01) ==
LOC: ED 17:43
DX: F41.9 Anxiety disorder, unspecified (principal); Z79.899 Other long term (current) drug therapy
CPT/HCPCS: 99282; 99283

== ENCOUNTER 2024-02-03 11:27 | Day surgery (SDC) | payer MEDICAID ==
[2024-02-03] MEDS: LACTATED RINGERS 1,000 ML IV ONE (11:47)
--- NOTE | 2024-02-03 13:04 | ANESTHESIA ---
Pre-Anesthesia VS, & Labs - Diagnosis anemia - Procedure EGD, colonoscopy Vital Signs: Temp Pulse Resp BP Pulse Ox O2 Flow Rate 36.5 C 57 L 14 127/88 H 98 02/03/24 11:57 02/03/24 11:57 02/03/24 11:57 02/03/24 11:57 02/03/24 11:57 Height: 6 ft 2 in Weight (kg): 86.7 kg Body Mass Index: 24.5 BMI Classification: Normal - NPO >8 hours Home Medications and Allergies Home Medications: Ambulatory Orders Clobetasol 0.05% Oint [Temovate 0.05% Oint] 1 applic TOP BID PRN 02/03/24 FLUoxetine [PROzac] 0.5 tab PO DAILY 02/03/24 Ferrous Sulfate 325 mg PO ONCE 02/03/24 Tamsulosin [Flomax] 1 cap PO DAILY 02/03/24 hydrOXYzine HCL [Hydroxyzine HCl] 25 mg PO BID PRN 02/03/24 Levothyroxine [Synthroid] 50 mcg PO DAILY 05/09/16 Liothyronine [Cytomel] 5 mg PO DAILY 02/12/17 Clobetasol 0.05% Oint [Temovate 0.05% Oint] 1 applic TOP BID PRN 02/03/24 FLUoxetine [PROzac] 0.5 tab PO DAILY 02/03/24 Ferrous Sulfate 325 mg PO ONCE 02/03/24 Tamsulosin [Flomax] 1 cap PO DAILY 02/03/24 hydrOXYzine HCL [Hydroxyzine HCl] 25 mg PO BID PRN 02/03/24 Allergies/Adverse Reactions: Allergies Allergy/AdvReac Type Severity Reaction Status Date / Time No Known Drug Allergies Allergy Verified 01/06/24 17:50 Anes History & Medical History - Anesthetic History Anesthesia Complications: reports: No previous complications Family history of Anesthesia Complications: Denies Family history of Malignant Hyperthermia: Denies - Medical History Cardiovascular: reports: None, Other Pulmonary: reports: Sleep apnea Gastrointestinal: reports: GERD Urinary: reports: Benign prostate hypertrophy, Other Neuro: reports: Other (mood disorder, PTSD) Musculoskeletal: reports: Other Endocrine/Autoimmune: reports: HyPOthyroidism Blood Disorders: reports: None Skin: reports: Psoriasis Smoking Status: Never smoker Psychosocial: reports: Anxiety, Alcohol History of Cancer?: No - Surgical History General: reports: Colonoscopy Eyes Ears Nose Throat (EENT): reports: Tonsil/Adenoidectomy Exam General: Alert, Oriented x3, Cooperative Dental: Poor dentition Mouth Openin Fingerbreadth Neck Mobility: Normal Mallampati classification: II Thyromental Distance: 4-6 cm Respiratory: Lungs clear Cardiovascular: Regular rate Plan Anesthesia Type: General, Total IV Consent for Procedure(s) Verified and Reviewed: Yes Code Status: Attempt Resuscitation ASA classification: 3-Severe systemic disease Is this case an emergency?: No
[2024-02-03] MEDS ORDERED: PROPOFOL 500 MG/50 ML 500 MG/50 ML VIAL ONE (13:23)
[2024-02-03] MEDS ORDERED: MIDAZOLAM 2 MG/2 ML VIAL ONE (13:23)
[2024-02-03] MEDS ORDERED: LIDOCAINE-MPF 2% 5 ML VIAL ONE (13:24)
[2024-02-03] MEDS ORDERED: PROPOFOL 200 MG/20 ML VIAL IVP ONE ×2 (14:27→14:48)
[2024-02-03] MEDS: LACTATED RINGERS 50 ML IV ONE (14:56)
[2024-02-03 15:13] VITALS: BP 124/87; O2SAT 100
--- NOTE | 2024-02-03 19:12 | ANESTHESIA POST OP EVALUATION ---
Anesthesia Post Eval - Post Anesthesia Eval Vitals: Last Vital Signs Temp 36.2 C L 02/03/24 15:10 Pulse 55 L 02/03/24 15:10 Resp 15 02/03/24 15:10 BP 124/87 H 02/03/24 15:10 Pulse Ox 100 02/03/24 15:10 O2 Flow Rate CV Function Including HR & BP: Stable Pain Control: Satisfactory Nausea & Vomiting: Negative Mental Status: Baseline Respiratory Status: Airway Patent Hydration Status: Satisfactory Anesthesia Complications: None
== END 2024-02-03 11:28 | disposition home or self-care (01) ==
LOC: SDS 11:27
PROVIDERS: ATTEND Surgery
PROC: 0DB38ZX Excision of Lower Esophagus, Via Natural or Artificial Opening Endoscopic, Diagnostic (ICD-10-PCS; 2024-02-03)
PROC: 0DJD8ZZ Inspection of Lower Intestinal Tract, Via Natural or Artificial Opening Endoscopic (ICD-10-PCS; 2024-02-03)
PROC: 0DB98ZX Excision of Duodenum, Via Natural or Artificial Opening Endoscopic, Diagnostic (ICD-10-PCS; principal; 2024-02-03 12:45)
PROC: 0DB78ZX Excision of Stomach, Pylorus, Via Natural or Artificial Opening Endoscopic, Diagnostic (ICD-10-PCS; 2024-02-03 12:45)
DX: D50.9 Iron deficiency anemia, unspecified (principal); K29.50 Unspecified chronic gastritis without bleeding; K20.90 Esophagitis, unspecified without bleeding; K44.9 Diaphragmatic hernia without obstruction or gangrene; K21.9 Gastro-esophageal reflux disease without esophagitis; N40.0 Benign prostatic hyperplasia without lower urinary tract symptoms; G47.30 Sleep apnea, unspecified; F41.9 Anxiety disorder, unspecified
CPT/HCPCS: 43239; 45378; J7120